=== PATIENT | female | born 1950 | race Caucasian/White ===

== ENCOUNTER 2019-07-10 13:09 | Emergency (ER) | payer MEDICARE, OTHER ==
[2019-07-10 13:42] VITALS: RESP 18
--- NOTE | 2019-07-10 14:59 | ED ---
General Adult HPI <Alphonso Gordon - Last Filed: 07/10/19 16:46> - General Source: patient, RN notes reviewed Mode of arrival: ambulatory Limitations: no limitations <Shayan Sosa - Last Filed: 07/10/19 17:53> - General Chief complaint: Nausea/Vomiting/Diarrhea Stated complaint: Nausea, headache, fever Time Seen by Provider: 07/10/19 14:46 - History of Present Illness Initial comments: 68-year-old female with a past medical history of liver disease, sclerosing cholangitis, interstitial cystitis presents to the emergency department for a chief complaint of fever. Patient states that on Sunday she had 4 episodes of diarrhea. States that since then she has not had any diarrhea but has had [place] sea and chills. Denies any abdominal pain. States she has had intermittent headaches as well as a runny nose. Denies cough. States that her urine smells foul and looks darker than normal but denies any dysuria or urinary frequency. Denies any suprapubic pain or back pain.Patient has no other complaints at this time including shortness of breath, chest pain, abdominal pain, or visual changes. (Shayan Sosa) - Related Data Home Medications Medication Instructions Recorded Confirmed Acetaminophen Tab [Tylenol Tab] 325 mg PO Q6H PRN 07/10/19 07/10/19 Calcium Carbonate [Calcium] 600 mg PO DAILY 07/10/19 07/10/19 Cyanocobalamin (Vitamin B-12) 1,000 mcg PO DAILY 07/10/19 07/10/19 [Vitamin B-12] Fish Oil/Dha/Epa [Fish Oil 1,200 1 cap PO BID 07/10/19 07/10/19 mg Fish Oil] Flaxseed Oil 1,000 mg PO DAILY 07/10/19 07/10/19 Folic Acid 0.8 mg PO DAILY 07/10/19 07/10/19 Ondansetron HCl [Zofran] 8 mg PO TID PRN 07/10/19 07/10/19 Ursodiol [Actigall] 300 mg PO BID-W/MEALS 07/10/19 07/10/19 clonazePAM [KlonoPIN] 0.5 mg PO BID PRN 07/10/19 07/10/19 Allergies Allergy/AdvReac Type Severity Reaction Status Date / Time aspirin AdvReac Unknown Verified 07/10/19 15:39 hydromorphone [From Dilaudid] AdvReac Nausea & Verified 07/10/19 15:39 Vomiting morphine AdvReac Nausea & Verified 07/10/19 15:39 Vomiting Sulfa (Sulfonamide AdvReac Nausea & Verified 07/10/19 15:39 Antibiotics) Vomiting Review of Systems ROS Other: All systems not noted in ROS Statement are negative. <Alphonso Gordon - Last Filed: 07/10/19 16:46> ROS Other: All systems not noted in ROS Statement are negative. <Shayan Sosa - Last Filed: 07/10/19 17:53> ROS Statement: Those systems with pertinent positive or pertinent negative responses have been documented in the HPI. Past Medical History Past Medical History: Liver Disease Additional Past Medical History / Comment(s): sclerosing cholangitis, interstitial cystitis, History of Any Multi-Drug Resistant Organisms: C-DIFF Date of last positivie culture/infection: 2012 MDRO Source:: stool Past Surgical History: Back Surgery, Cholecystectomy, Hernia Repair Past Psychological History: No Psychological Hx Reported Smoking Status: Never smoker Past Alcohol Use History: None Reported Past Drug Use History: None Reported <Shayan Sosa P - Last Filed: 07/10/19 17:53> General Exam Limitations: no limitations General appearance: alert, in no apparent distress Head exam: Present: atraumatic, normocephalic, normal inspection Eye exam: Present: normal appearance, PERRL, EOMI. Absent: scleral icterus, conjunctival injection, periorbital swelling ENT exam: Present: normal exam, normal oropharynx, mucous membranes moist, TM's normal bilaterally, normal external ear exam Neck exam: Present: normal inspection, full ROM. Absent: tenderness, meningis mus, lymphadenopathy Respiratory exam: Present: normal lung sounds bilaterally. Absent: respiratory distress, wheezes, rales, rhonchi, stridor Cardiovascular Exam: Present: regular rate, normal rhythm, normal heart sounds. Absent: systolic murmur, diastolic murmur, rubs, gallop, clicks GI/Abdominal exam: Present: soft, normal bowel sounds. Absent: distended, tenderness, guarding, rebound, rigid Back exam: Absent: CVA tenderness (R), CVA tenderness (L) Neurological exam: Present: alert, oriented X3, CN II-XII intact, normal gait, other (GCS 15) Psychiatric exam: Present: normal affect, normal mood <Shayan Sosa - Last Filed: 07/10/19 17:53> Course <Alphonso Gordon - Last Filed: 07/10/19 16:46> Vital Signs 07/10/19 07/10/19 07/10/19 13:38 15:23 16:57 Temperature 98.1 F 101.3 F H Pulse Rate 95 98 89 Respiratory 18 18 18 Rate Blood Pressure 97/61 101/57 101/69 O2 Sat by Pulse 98 97 97 Oximetry 07/10/19 07/10/19 17:20 17:21 Temperature 101.3 F H 100 F H Pulse Rate 89 Respiratory 18 Rate Blood Pressure 101/69 O2 Sat by Pulse 97 Oximetry - Reevaluation(s) Reevaluation #1: 07/10/19 16:46 PA supervision: I personally evaluate this case the presentation is consistent with a viral syndrome. Patient will be discharged I do agree with the assessment and plan. (Alphonso Gordon) Medical Decision Making - Lab Data Result diagrams: 07/10/19 14:55 07/10/19 14:55 <Alphonso Gordon - Last Filed: 07/10/19 16:46> - Lab Data Result diagrams: 07/10/19 14:55 07/10/19 14:55 <Shayan Sosa - Last Filed: 07/10/19 17:53> - Medical Decision Making 68-year-old female with a past medical history of liver disease, interstitial cystitis presents for fever. Patient had 4 episodes of diarrhea on Sunday since then has had nausea and chills. No abdominal pain whatsoever. Runny nose as well. Vitals show a temperature of 101.3. CBC unremarkable. CMP shows mildly elevated liver enzymes which is chronic. Urine is negative for infection. Patient was given fluids as she does have 1+ ketones. Chest x-ray also negative. Patient also having headaches when fever is elevated. No nuchal rigidity or neck pain. No focal neurologic deficits. At this time patient likely has a viral syndrome causing her fever. I discussed this case with attending Dr. Gordon who agrees with this assessment and treatment plan. (Ian,Shayan P) - Lab Data Lab Results 07/10/19 07/10/19 07/10/19 Range/Units 14:55 14:55 14:55 WBC 8.6 (3.8-10.6) k/uL RBC 4.51 (3.80-5.40) m/uL Hgb 13.9 (11.4-16.0) gm/dL Hct 42.4 (34.0-46.0) % MCV 93.9 (80.0-100.0) fL MCH 30.7 (25.0-35.0) pg MCHC 32.7 (31.0-37.0) g/dL RDW 13.3 (11.5-15.5) % Plt Count 264 (150-450) k/uL Neutrophils % 84 % Lymphocytes % 8 % Monocytes % 6 % Eosinophils % 0 % Basophils % 1 % Neutrophils # 7.2 (1.3-7.7) k/uL Lymphocytes # 0.7 L (1.0-4.8) k/uL Monocytes # 0.5 (0-1.0) k/uL Eosinophils # 0.0 (0-0.7) k/uL Basophils # 0.1 (0-0.2) k/uL PT (9.0-12.0) sec INR (<1.2) APTT (22.0-30.0) sec Sodium 136 L (137-145) mmol/L Potassium 4.9 (3.5-5.1) mmol/L Chloride 101 (98-107) mmol/L Carbon Dioxide 21 L (22-30) mmol/L Anion Gap 14 mmol/L BUN 16 (7-17) mg/dL Creatinine 1.03 (0.52-1.04) mg/dL Est GFR (CKD-EPI)AfAm 64 (>60 ml/min/1.73 sqM) Est GFR (CKD-EPI)NonAf 56 (>60 ml/min/1.73 sqM) Glucose 118 H (74-99) mg/dL Plasma Lactic Acid Joe 1.2 (0.7-2.0) mmol/L Calcium 9.7 (8.4-10.2) mg/dL Total Bilirubin 1.2 (0.2-1.3) mg/dL AST 79 H (14-36) U/L ALT 47 (9-52) U/L Alkaline Phosphatase 183 H (38-126) U/L Total Protein 8.3 H (6.3-8.2) g/dL Albumin 4.5 (3.5-5.0) g/dL Urine Color Urine Appearance (Clear) Urine pH (5.0-8.0) Ur Specific [place] (1.001-1.035) Urine Protein (Negative) Urine Glucose (UA) (Negative) Urine Ketones (Negative) Urine Blood (Negative) Urine Nitrite (Negative) Urine Bilirubin (Negative) Urine Urobilinogen (<2.0) mg/dL Ur Leukocyte Esterase (Negative) Urine RBC (0-5) /hpf Urine WBC (0-5) /hpf Urine Mucus (None) /hpf Influenza Type A RNA (Not Detectd) Influenza Type B (PCR) (Not Detectd) 07/10/19 07/10/19 07/10/19 Range/Units 14:55 14:55 Unknown WBC (3.8-10.6) k/uL RBC (3.80-5.40) m/uL Hgb (11.4-16.0) gm/dL Hct (34.0-46.0) % MCV (80.0-100.0) fL MCH (25.0-35.0) pg MCHC (31.0-37.0) g/dL RDW (11.5-15.5) % Plt Count (150-450) k/uL Neutrophils % % Lymphocytes % % Monocytes % % Eosinophils % % Basophils % % Neutrophils # (1.3-7.7) k/uL Lymphocytes # (1.0-4.8) k/uL Monocytes # (0-1.0) k/uL Eosinophils # (0-0.7) k/uL Basophils # (0-0.2) k/uL PT 9.5 (9.0-12.0) sec INR 0.9 (<1.2) APTT 23.6 (22.0-30.0) sec Sodium (137-145) mmol/L Potassium (3.5-5.1) mmol/L Chloride (98-107) mmol/L Carbon Dioxide (22-30) mmol/L Anion Gap mmol/L BUN (7-17) mg/dL Creatinine (0.52-1.04) mg/dL Est GFR (CKD-EPI)AfAm (>60 ml/min/1.73 sqM) Est GFR (CKD-EPI)NonAf (>60 ml/min/1.73 sqM) Glucose (74-99) mg/dL Plasma Lactic Acid Joe (0.7-2.0) mmol/L Calcium (8.4-10.2) mg/dL Total Bilirubin (0.2-1.3) mg/dL AST (14-36) U/L ALT (9-52) U/L Alkaline Phosphatase (38-126) U/L Total Protein (6.3-8.2) g/dL Albumin (3.5-5.0) g/dL Urine Color Yellow Urine Appearance Clear (Clear) Urine pH 6.0 (5.0-8.0) Ur Specific [place] 1.024 (1.001-1.035) Urine Protein Trace H (Negative) Urine Glucose (UA) Negative (Negative) Urine Ketones 1+ H (Negative) Urine Blood Trace H (Negative) Urine Nitrite Negative (Negative) Urine Bilirubin Negative (Negative) Urine Urobilinogen 2.0 (<2.0) mg/dL Ur Leukocyte Esterase Negative (Negative) Urine RBC 3 (0-5) /hpf Urine WBC 1 (0-5) /hpf Urine Mucus Rare H (None) /hpf Influenza Type A RNA Not Detected (Not Detectd) Influenza Type B (PCR) Not Detected (Not Detectd) Disposition <Alphonso Gordon - Last Filed: 07/10/19 16:46> Is patient prescribed a controlled substance at d/c from ED?: No Time of Disposition: 17:53 <Shayan Sosa - Last Filed: 07/10/19 17:53> Clinical Impression: Viral syndrome Disposition: HOME SELF-CARE Condition: Good Instructions (If sedation given, give patient instructions): Fever in Adults (ED) Additional Instructions: Please take Motrin and Tylenol for pain. Please follow-up with primary care in 1-2 days. Return to the emergency department if you have any worsening symptoms. Referrals: Alphonso Mercedes MD [Primary Care Provider] - 1-2 days
[2019-07-10] MEDS ORDERED: ACETAMINOPHEN TAB 500 MG TAB PO STA (15:24)
[2019-07-10 15:32] LABS: Basophils # (A) 0.1 k/uL (0-0.2); Basophils % (A) 1 %; Eosinophils % (A) 0 %; HCT 42.4 % (34.0-46.0); HGB 13.9 gm/dL (11.4-16.0); Lymphocytes # (A) 0.7 k/uL (1.0-4.8); Lymphocytes % (A) 8 %; MCH 30.7 pg (25.0-35.0); MCHC 32.7 g/dL (31.0-37.0); MCV 93.9 fL (80.0-100.0); Mean Platelet Volume 7.6; Monocytes # (A) 0.5 k/uL (0-1.0); Monocytes % (A) 6 %; Neutrophils # (A) 7.2 k/uL (1.3-7.7); Neutrophils % (A) 84 %; Platelet Count 264 k/uL (150-450); RBC 4.51 m/uL (3.80-5.40); RDW 13.3 % (11.5-15.5); WBC 8.6 k/uL (3.8-10.6)
[2019-07-10 15:37] LABS: Albumin 4.5 g/dL (3.5-5.0); Calcium 9.7 mg/dL (8.4-10.2); Total Bilirubin 1.2 mg/dL (0.2-1.3); Total Protein 8.3 g/dL (6.3-8.2)
[2019-07-10] MEDS: SODIUM CHLORIDE 0.9% 500 ML 500 ML IV SCH ×2 (15:46→16:00)
[2019-07-10 15:47] LABS: Appearance,Urine Clear (Clear); Bilirubin,Urine Negative (Negative); Blood,Urine Trace (Negative); Color,Urine Yellow; Glucose,Urine (UA) Negative (Negative); Ketones,Urine 1+ (Negative); Leukocyte Esterase,Urine Negative (Negative); Mucus,Urine Rare /hpf; Nitrite,Urine Negative (Negative); Potassium 4.9 mmol/L (3.5-5.1); Protein,Urine Trace (Negative); RBC,Urine 3 /hpf (0-5); Specific Gravity,Urine 1.024 (1.001-1.035); WBC,Urine 1 /hpf (0-5)
[2019-07-10 15:49] LABS: INR 0.9 (<1.2); Partial Thromboplastin Time 23.6 sec (22.0-30.0); Prothrombin Time 9.5 sec (9.0-12.0)
--- NOTE | 2019-07-10 16:21 | XR ---
EXAMINATION TYPE: XR chest 2V DATE OF EXAM: 07/10/2019 COMPARISON: NONE HISTORY: Fever, nausea and headache TECHNIQUE: Frontal and lateral views of the chest are obtained. FINDINGS: There is no focal air space opacity, pleural effusion, or pneumothorax seen. The cardiac silhouette size is within normal limits. Surgical clips are present in the right upper quadrant. Ther e are overlying cardiac leads. Patient is rotated. The osseous structures are intact. IMPRESSION: No acute cardiopulmonary process.
[2019-07-10 16:58] VITALS: BP 101/69; PULSE 89
[2019-07-10 17:21] VITALS: TEMP 100
== END 2019-07-10 18:04 | disposition home or self-care (01) ==
LOC: EC 13:09
DX: B34.9 Viral infection, unspecified (principal); R74.8 Abnormal levels of other serum enzymes; R19.7 Diarrhea, unspecified; R11.0 Nausea; Z79.899 Other long term (current) drug therapy; Z88.5 Allergy status to narcotic agent; Z88.6 Allergy status to analgesic agent; Z88.2 Allergy status to sulfonamides; Z90.49 Acquired absence of other specified parts of digestive tract; Z87.448 Personal history of other diseases of urinary system; Z87.19 Personal history of other diseases of the digestive system
CPT/HCPCS: 36415; 71046; 80053; 81001; 83605; 85025; 85610; 85730; 87086; 87502; 93005; 96360; 99284

== ENCOUNTER 2021-03-17 12:46 | Emergency (ER) | payer MEDICARE, OTHER ==
[2021-03-17 12:55] VITALS: TEMP 97.7
[2021-03-17] MEDS ORDERED: SODIUM CHLORIDE 0.9% 1,000 ML IV STA (13:20)
--- NOTE | 2021-03-17 13:45 | ED ---
General Adult HPI - General Chief complaint: Abdominal Pain Stated complaint: colitis, abd pain Time Seen by Provider: 03/17/21 13:19 Source: patient Mode of arrival: ambulatory Limitations: no limitations - History of Present Illness Initial comments: Dennis is a 70-year-old female with a history of ulcerative colitis which causes her to suffer from persistent nausea and intermittent vomiting. Patient states that earlier this week she saw her primary care physician to discuss starting a antidepressant due to the effects of her chronic illness on her mental health. Patient states yesterday she took a single dose of Celexa which caused her to develop profound nausea and vomiting. Patient states she hasn't been able to tolerate any oral intake for over 24 hours. She came to the ER today because she is feeling weak and dehydrated. Denies any abdominal pain. Chest pain or shortness of breath. - Related Data Home Medications Medication Instructions Recorded Confirmed Calcium Carbonate [Calcium] 600 mg PO DAILY 07/10/19 03/17/21 Cyanocobalamin (Vitamin B-12) 1,000 mcg PO DAILY 07/10/19 03/17/21 [Vitamin B-12] Fish Oil/Dha/Epa [Fish Oil 1,200 1 cap PO DAILY 07/10/19 03/17/21 mg Fish Oil] Folic Acid 0.8 mg PO DAILY 07/10/19 03/17/21 clonazePAM [KlonoPIN] 0.5 mg PO BID 07/10/19 03/17/21 ursodioL [Actigall] 600 mg PO BID-W/MEALS 07/10/19 03/17/21 Cholecalciferol [Vitamin D3 (25 25 mcg PO DAILY 03/17/21 03/17/21 Mcg = 1000 Iu)] Citalopram Hydrobromide [CeleXA] 10 mg PO DAILY 03/17/21 03/17/21 Dicyclomine [Bentyl] 10 mg PO TID PRN 03/17/21 03/17/21 Famotidine [Pepcid] 20 mg PO Q12H PRN 03/17/21 03/17/21 Ondansetron [Zofran] 4 mg PO Q12HR PRN 03/17/21 03/17/21 Allergies Allergy/AdvReac Type Severity Reaction Status Date / Time aspirin AdvReac Unknown Verified 03/17/21 14:41 hydromorphone [From Dilaudid] AdvReac Nausea & Verified 03/17/21 14:41 Vomiting morphine AdvReac Nausea & Verified 03/17/21 14:41 Vomiting Sulfa (Sulfonamide AdvReac Nausea & Verified 03/17/21 14:41 Antibiotics) Vomiting Review of Systems ROS Statement: Those systems with pertinent positive or pertinent negative responses have been documented in the HPI. ROS Other: All systems not noted in ROS Statement are negative. Past Medical History Past Medical History: Liver Disease Additional Past Medical History / Comment(s): sclerosing cholangitis, interstitial cystitis, ulcerative collitis History of Any Multi-Drug Resistant Organisms: C-DIFF Date of last positivie culture/infection: 2012 MDRO Source:: stool Past Surgical History: Back Surgery, Cholecystectomy, Hernia Repair Past Psychological History: No Psychological Hx Reported Smoking Status: Never smoker Past Alcohol Use History: None Reported Past Drug Use History: None Reported General Exam - General Exam Comments Initial Comments: Physical Exam GENERAL: Thin elderly female, appears dehydrated HENT: Normocephalic, Atraumatic. EYES: PERRL, EOMI PULMONARY: Unlabored respirations. CARDIOVASCULAR: RRR Warm and well perfused extremities ABDOMEN: Soft, non-tender Non-distended SKIN: No rashes or bruising : Deferred NEUROLOGIC: Alert and oriented Normal speech Normal gait MUSCULOSKELETAL: Moving all extremities with no apparent injury PSYCHIATRIC: No SI/HI Limitations: no limitations Course Vital Signs 03/17/21 03/17/21 03/17/21 12:51 14:06 15:27 Temperature 97.7 F Pulse Rate 64 68 Respiratory 18 16 Rate Blood Pressure 86/59 97/63 115/64 O2 Sat by Pulse 98 97 Oximetry EKG Findings - EKG Comments: EKG Findings:: EKG was obtained at 1341 rate is 65 rhythm is sinus there is a normal axis, normal intervals, IN 176, QRS 66 QTC 43 there are no acute ST elevations or depressions there is no evidence of ischemia or infarction Medical Decision Making - Medical Decision Making Patient was seen and evaluated, history was obtained from patient Labs and IV fluids were ordered Labs resulted with no significant abnormalities, mild elevation of liver enzymes is at baseline for patient Patient was treated with a dose of Zofran received a liter of IV fluids. Patient reported feeling much better she has prescriptions Zofran at home and is comfortable with plan for discharge home, discontinuation of her antidepressants and follow up with primary care - Lab Data Result diagrams: 03/17/21 13:52 03/17/21 13:52 Lab Results 03/17/21 03/17/21 03/17/21 Range/Units 13:52 13:52 13:52 WBC 7.7 (3.8-10.6) k/uL RBC 4.15 (3.80-5.40) m/uL Hgb 12.7 (11.4-16.0) gm/dL Hct 38.6 (34.0-46.0) % MCV 92.9 (80.0-100.0) fL MCH 30.6 (25.0-35.0) pg MCHC 33.0 (31.0-37.0) g/dL RDW 13.1 (11.5-15.5) % Plt Count 308 (150-450) k/uL MPV 7.9 Neutrophils % 67 % Lymphocytes % 26 % Monocytes % 5 % Eosinophils % 1 % Basophils % 1 % Neutrophils # 5.2 (1.3-7.7) k/uL Lymphocytes # 2.0 (1.0-4.8) k/uL Monocytes # 0.4 (0-1.0) k/uL Eosinophils # 0.1 (0-0.7) k/uL Basophils # 0.1 (0-0.2) k/uL Sodium 135 L (137-145) mmol/L Potassium 4.7 (3.5-5.1) mmol/L Chloride 100 (98-107) mmol/L Carbon Dioxide 29 (22-30) mmol/L Anion Gap 6 mmol/L BUN 13 (7-17) mg/dL Creatinine 1.21 H (0.52-1.04) mg/dL Est GFR (CKD-EPI)AfAm 52 (>60 ml/min/1.73 sqM) Est GFR (CKD-EPI)NonAf 45 (>60 ml/min/1.73 sqM) Glucose 93 (74-99) mg/dL Plasma Lactic Acid Joe (0.7-2.0) mmol/L Calcium 9.9 (8.4-10.2) mg/dL Magnesium 1.9 (1.6-2.3) mg/dL Total Bilirubin 0.3 (0.2-1.3) mg/dL AST 49 H (14-36) U/L ALT 28 (4-34) U/L Alkaline Phosphatase 156 H (38-126) U/L Troponin I (0.000-0.034) ng/mL Total Protein 7.0 (6.3-8.2) g/dL Albumin 4.0 (3.5-5.0) g/dL Amylase 57 (30-110) U/L Lipase 205 (23-300) U/L Urine Color Light Yellow Urine Appearance Clear (Clear) Urine pH 7.5 (5.0-8.0) Ur Specific [place] 1.007 (1.001-1.035) Urine Protein Negative (Negative) Urine Glucose (UA) Negative (Negative) Urine Ketones Negative (Negative) Urine Blood Negative (Negative) Urine Nitrite Negative (Negative) Urine Bilirubin Negative (Negative) Urine Urobilinogen <2.0 (<2.0) mg/dL Ur Leukocyte Esterase Negative (Negative) 03/17/21 03/17/21 Range/Units 13:52 13:52 WBC (3.8-10.6) k/uL RBC (3.80-5.40) m/uL Hgb (11.4-16.0) gm/dL Hct (34.0-46.0) % MCV (80.0-100.0) fL MCH (25.0-35.0) pg MCHC (31.0-37.0) g/dL RDW (11.5-15.5) % Plt Count (150-450) k/uL MPV Neutrophils % % Lymphocytes % % Monocytes % % Eosinophils % % Basophils % % Neutrophils # (1.3-7.7) k/uL Lymphocytes # (1.0-4.8) k/uL Monocytes # (0-1.0) k/uL Eosinophils # (0-0.7) k/uL Basophils # (0-0.2) k/uL Sodium (137-145) mmol/L Potassium (3.5-5.1) mmol/L Chloride (98-107) mmol/L Carbon Dioxide (22-30) mmol/L Anion Gap mmol/L BUN (7-17) mg/dL Creatinine (0.52-1.04) mg/dL Est GFR (CKD-EPI)AfAm (>60 ml/min/1.73 sqM) Est GFR (CKD-EPI)NonAf (>60 ml/min/1.73 sqM) Glucose (74-99) mg/dL Plasma Lactic Acid Joe 1.0 (0.7-2.0) mmol/L Calcium (8.4-10.2) mg/dL Magnesium (1.6-2.3) mg/dL Total Bilirubin (0.2-1.3) mg/dL AST (14-36) U/L ALT (4-34) U/L Alkaline Phosphatase (38-126) U/L Troponin I <0.012 (0.000-0.034) ng/mL Total Protein (6.3-8.2) g/dL Albumin (3.5-5.0) g/dL Amylase (30-110) U/L Lipase (23-300) U/L Urine Color Urine Appearance (Clear) Urine pH (5.0-8.0) Ur Specific [place] (1.001-1.035) Urine Protein (Negative) Urine Glucose (UA) (Negative) Urine Ketones (Negative) Urine Blood (Negative) Urine Nitrite (Negative) Urine Bilirubin (Negative) Urine Urobilinogen (<2.0) mg/dL Ur Leukocyte Esterase (Negative) Disposition Clinical Impression: Nausea and vomiting, Adverse reaction to antidepressant drug Disposition: HOME SELF-CARE Condition: Stable Additional Instructions: Follow up with Dr Apoorva GRACE to discuss medication to manage your daily symptoms from UC Is patient prescribed a controlled substance at d/c from ED?: No Referrals: Alphonso Mercedes MD [Primary Care Provider] - 1-2 days
[2021-03-17 14:06] LABS: Basophils # (A) 0.1 k/uL (0-0.2); Basophils % (A) 1 %; Eosinophils # (A) 0.1 k/uL (0-0.7); Eosinophils % (A) 1 %; HCT 38.6 % (34.0-46.0); HGB 12.7 gm/dL (11.4-16.0); Lymphocytes % (A) 26 %; MCH 30.6 pg (25.0-35.0); MCV 92.9 fL (80.0-100.0); Mean Platelet Volume 7.9; Monocytes # (A) 0.4 k/uL (0-1.0); Monocytes % (A) 5 %; Neutrophils # (A) 5.2 k/uL (1.3-7.7); Neutrophils % (A) 67 %; Platelet Count 308 k/uL (150-450); RBC 4.15 m/uL (3.80-5.40); RDW 13.1 % (11.5-15.5); WBC 7.7 k/uL (3.8-10.6)
[2021-03-17 14:15] LABS: Appearance,Urine Clear (Clear); Bilirubin,Urine Negative (Negative); Blood,Urine Negative (Negative); Color,Urine Light Yellow; Glucose,Urine (UA) Negative (Negative); Ketones,Urine Negative (Negative); Leukocyte Esterase,Urine Negative (Negative); Nitrite,Urine Negative (Negative); PH, Urine 7.5 (5.0-8.0); Protein,Urine Negative (Negative); Specific Gravity,Urine 1.007 (1.001-1.035); Urobilinogen,Urine <2.0 mg/dL (<2.0)
[2021-03-17 14:19] LABS: Calcium 9.9 mg/dL (8.4-10.2); Magnesium 1.9 mg/dL (1.6-2.3); Potassium 4.7 mmol/L (3.5-5.1); Total Bilirubin 0.3 mg/dL (0.2-1.3)
[2021-03-17] MEDS ORDERED: ONDANSETRON 4 MG/2 ML VIAL IVP STA (14:49)
[2021-03-17 15:28] VITALS: BP 115/64; PULSE 68; RESP 16
== END 2021-03-17 15:28 | disposition home or self-care (01) ==
LOC: EC 12:46
DX: T43.291A Poisoning by other antidepressants, accidental (unintentional), initial encounter (principal); Z90.49 Acquired absence of other specified parts of digestive tract
CPT/HCPCS: 36415; 93005; 80053; 82150; 83605; 83690; 83735; 84484; 85025; 81003; 99285; 96374; J2405

== ENCOUNTER 2023-02-08 16:13 | Emergency (ER) | payer MEDICARE, OTHER ==
[2023-02-08 16:21] VITALS: TEMP 98.6
[2023-02-08 16:53] LABS: Basophils % (A) 0 %; Eosinophils # (A) 0.1 k/uL (0-0.7); Eosinophils % (A) 1 %; HCT 35.7 % (34.0-46.0); HGB 11.8 gm/dL (11.4-16.0); Lymphocytes # (A) 2.6 k/uL (1.0-4.8); Lymphocytes % (A) 30 %; MCH 31.9 pg (25.0-35.0); MCHC 33.1 g/dL (31.0-37.0); MCV 96.2 fL (80.0-100.0); Mean Platelet Volume 8.6; Monocytes # (A) 0.4 k/uL (0-1.0); Monocytes % (A) 5 %; Neutrophils # (A) 5.3 k/uL (1.3-7.7); Neutrophils % (A) 62 %; Platelet Count 326 k/uL (150-450); RBC 3.71 m/uL (3.80-5.40); RDW 13.3 % (11.5-15.5); WBC 8.6 k/uL (3.8-10.6)
[2023-02-08 17:10] LABS: Albumin 4.1 g/dL (3.5-5.0); Calcium 8.7 mg/dL (8.4-10.2); Potassium 4.7 mmol/L (3.5-5.1); Total Bilirubin 0.8 mg/dL (0.2-1.3); Total Protein 7.8 g/dL (6.3-8.2)
[2023-02-08 17:19] LABS: Appearance,Urine Clear (Clear); Bilirubin,Urine Negative (Negative); Blood,Urine Negative (Negative); Color,Urine Light Yellow; Glucose,Urine (UA) Negative (Negative); Ketones,Urine Negative (Negative); Leukocyte Esterase,Urine Negative (Negative); Nitrite,Urine Negative (Negative); Protein,Urine Negative (Negative); Specific Gravity,Urine 1.004 (1.001-1.035); Urobilinogen,Urine <2.0 mg/dL (<2.0)
--- NOTE | 2023-02-08 20:01 | ED ---
Abdominal Pain HPI - General Chief Complaint: Abdominal Pain Stated Complaint: Abdominal Pain Time Seen by Provider: 02/08/23 18:32 Source: patient, RN notes reviewed, old records reviewed Mode of arrival: ambulatory Limitations: no limitations - History of Present Illness Initial Comments: This is a 72-year-old female bass department for evaluation today. Patient presents evaluation for abdominal pain left-sided left mid flank and suprapubic abdominal pain. Patient states she does have history of liver disease gross and cholangitis, patient presents today for evaluation of new onset abdominal pain never prior pain like this before history has had history of colonoscopy within normal. Patient states this concerned regarding her friend's the pain is episodic and is left-sided mild nausea no vomiting no other complaints no fevers. No change in stool no blood in the stool no diarrhea MD Complaint: abdominal pain -: hour(s) Location: diffuse, LLQ, L flank Radiation: none Migration to: no migration Severity: moderate Severity scale (1-10): 4 Quality: cramping Consistency: intermittent Improves With: nothing Worsens With: nothing Associated Symptoms: nausea - Related Data Home Medications Medication Instructions Recorded Confirmed Cyanocobalamin (Vitamin B-12) 1,000 mcg PO DAILY 07/10/19 02/08/23 [Vitamin B-12] Folic Acid 0.8 mg PO DAILY 07/10/19 02/08/23 clonazePAM [KlonoPIN] 0.5 mg PO BID 07/10/19 02/08/23 ursodioL [Actigall] 600 mg PO BID 07/10/19 02/08/23 Cholecalciferol [Vitamin D3 (25 25 mcg PO DAILY 02/08/23 02/08/23 Mcg = 1000 Iu)] Allergies Allergy/AdvReac Type Severity Reaction Status Date / Time aspirin AdvReac Unknown Verified 02/08/23 18:58 hydromorphone [From Dilaudid] AdvReac Nausea & Verified 02/08/23 18:58 Vomiting morphine AdvReac Nausea & Verified 02/08/23 18:58 Vomiting Sulfa (Sulfonamide AdvReac Nausea & Verified 02/08/23 18:58 Antibiotics) Vomiting Review of Systems ROS Statement: Those systems with pertinent positive or pertinent negative responses have been documented in the HPI. ROS Other: All systems not noted in ROS Statement are negative. Past Medical History Past Medical History: Liver Disease Additional Past Medical History / Comment(s): sclerosing cholangitis, interstitial cystitis, ulcerative collitis History of Any Multi-Drug Resistant Organisms: C-DIFF Date of last positivie culture/infection: 2021 MDRO Source:: stool Past Surgical History: Back Surgery, Cholecystectomy, Hernia Repair Past Psychological History: No Psychological Hx Reported Smoking Status: Never smoker Past Alcohol Use History: None Reported Past Drug Use History: None Reported General Exam Limitations: no limitations General appearance: alert, in no apparent distress Head exam: Present: atraumatic, normocephalic, normal inspection Eye exam: Present: normal appearance, PERRL, EOMI. Absent: scleral icterus, conjunctival injection, periorbital swelling ENT exam: Present: normal exam, mucous membranes moist Neck exam: Present: normal inspection. Absent: tenderness, meningismus, lymphadenopathy Respiratory exam: Present: normal lung sounds bilaterally. Absent: respiratory distress, wheezes, rales, rhonchi, stridor Cardiovascular Exam: Present: regular rate, normal rhythm, normal heart sounds. Absent: systolic murmur, diastolic murmur, rubs, gallop, clicks GI/Abdominal exam: Present: soft, normal bowel sounds. Absent: distended, tenderness, guarding, rebound, rigid Extremities exam: Present: normal inspection, full ROM, normal capillary refill. Absent: tenderness, pedal edema, joint swelling, calf tenderness Back exam: Present: normal inspection Neurological exam: Present: alert, oriented X3, CN II-XII intact Psychiatric exam: Present: normal affect, normal mood Skin exam: Present: warm, dry, intact, normal color. Absent: rash Course Vital Signs 02/08/23 02/08/23 02/08/23 16:19 20:09 21:50 Temperature 98.6 F Pulse Rate 77 74 86 Respiratory 20 18 20 Rate Blood Pressure 100/64 126/67 126/86 O2 Sat by Pulse 99 100 98 Oximetry - Reevaluation(s) Reevaluation #1: 02/09/23 00:34 Medical record is reviewed Reevaluation #2: 02/09/23 00:34 Patient has no change in symptoms here in the ER symptoms remain episodic Reevaluation #3: 02/09/23 00:34 Patient informed of results and questions answered Reevaluation #4: 02/09/23 00:34 Was pt. sent in by a medical professional or institution? @ -no Did you speak to anyone other than the patient for history? @ -no Did you review nursing and triage notes? @ -agree Were old charts reviewed? @ -no Differential Diagnosis? @ -prior EKG interpreted by me (3pts min.)? @ -no X-rays interpreted by me (1pt min.)? @ -no CT interpreted by me (1pt min.)? @ -no U/S interpreted by me (1pt. min.)? @ -no What testing was considered but not performed? (CT, X-rays, U/S, labs)? Why? @ -no What meds were considered but not given? Why? @ -no Did you discuss the management of the patient with other professionals? @ -no Did you reconcile home meds? @ -no Was smoking cessation discussed for >3mins.? @ -no Was critical care preformed (if so, how long)? @ -no Were there social determinants of health that impacted care today? How? (Homelessness, low income, unemployed, alcoholism, drug addiction, transportation, low edu. Level, literacy, decrease access to med. care, halfway, rehab)? @ -no Was there de-escalation of care discussed even if they declined? (Discuss DNR or withdrawal of care, Hospice)? @ -no What co-morbidities impacted this encounter? (DM, HTN, Smoking, COPD, CAD, Cancer, CVA, Hep., AIDS, mental health diagnosis, sleep apnea, morbid obesity)? @ -no Was patient admitted / discharged? @ -dc Undiagnosed new problem with uncertain prognosis? @ -no Drug Therapy requiring intensive monitoring for toxicity (Heparin, Nitro, Insulin, Cardizem)? @ -no Were any procedures done? @ -no Diagnosis/symptom? @ -abodminal pain Acute, or Chronic, or Acute on Chronic? @ -no Uncomplicated (without systemic symptoms) or Complicated (systemic symptoms)? @ -no Side effects of treatment? @ -no Exacerbation, Progression, or Severe Exacerbation] @ -no Poses a threat to life or bodily function? @ -no Reevaluation #5: 02/09/23 00:34 Differential Abdominal Pain Women: Appendicitis, Cholecystitis, diverticulosis, ischemic bowel, pancreatitis, hepatitis, UTI, gastroenteritis, AAA, incarcerated hernia, bowel obstruction, constipation, inflammatory bowel, hepatitis, peptic ulcer disease, splenic infarction, perforated viscus, vulvitis, ovarian torsion, PID, kidney stone, placenta abruption, this is not meant to be an all-inclusive list Medical Decision Making - Medical Decision Making 72 male with nonspecific abdominal pain CT labwork is normal patient can be discharged home - Lab Data Result diagrams: 02/08/23 16:35 02/08/23 16:35 Lab Results 02/08/23 02/08/23 02/08/23 Range/Units 16:35 16:35 16:57 WBC 8.6 (3.8-10.6) k/uL RBC 3.71 L (3.80-5.40) m/uL Hgb 11.8 (11.4-16.0) gm/dL Hct 35.7 (34.0-46.0) % MCV 96.2 (80.0-100.0) fL MCH 31.9 (25.0-35.0) pg MCHC 33.1 (31.0-37.0) g/dL RDW 13.3 (11.5-15.5) % Plt Count 326 (150-450) k/uL MPV 8.6 Neutrophils % 62 % Lymphocytes % 30 % Monocytes % 5 % Eosinophils % 1 % Basophils % 0 % Neutrophils # 5.3 (1.3-7.7) k/uL Lymphocytes # 2.6 (1.0-4.8) k/uL Monocytes # 0.4 (0-1.0) k/uL Eosinophils # 0.1 (0-0.7) k/uL Basophils # 0.0 (0-0.2) k/uL Sodium 136 L (137-145) mmol/L Potassium 4.7 (3.5-5.1) mmol/L Chloride 102 (98-107) mmol/L Carbon Dioxide 26 (22-30) mmol/L Anion Gap 8 mmol/L BUN 17 (7-17) mg/dL Creatinine 1.18 H (0.52-1.04) mg/dL Est GFR (CKD-EPI)AfAm 53 (>60 ml/min/1.73 sqM) Est GFR (CKD-EPI)NonAf 46 (>60 ml/min/1.73 sqM) Glucose 94 (74-99) mg/dL Calcium 8.7 (8.4-10.2) mg/dL Total Bilirubin 0.8 (0.2-1.3) mg/dL AST 79 H (14-36) U/L ALT 58 H (4-34) U/L Alkaline Phosphatase 217 H (38-126) U/L Total Protein 7.8 (6.3-8.2) g/dL Albumin 4.1 (3.5-5.0) g/dL Amylase 67 (30-110) U/L Lipase 214 (23-300) U/L Urine Color Light Yellow Urine Appearance Clear (Clear) Urine pH 6.0 (5.0-8.0) Ur Specific [place] 1.004 (1.001-1.035) Urine Protein Negative (Negative) Urine Glucose (UA) Negative (Negative) Urine Ketones Negative (Negative) Urine Blood Negative (Negative) Urine Nitrite Negative (Negative) Urine Bilirubin Negative (Negative) Urine Urobilinogen <2.0 (<2.0) mg/dL Ur Leukocyte Esterase Negative (Negative) - Radiology Data Radiology results: report reviewed (CT head and pelvis negative for acute disease), image reviewed Disposition Clinical Impression: Abdominal pain Disposition: HOME SELF-CARE Condition: Good Instructions (If sedation given, give patient instructions): Abdominal Pain (ED) Is patient prescribed a controlled substance at d/c from ED?: No Referrals: Alphonso Mercedes MD [Primary Care Provider] - 1-2 days Time of Disposition: 21:10
--- NOTE | 2023-02-08 20:35 | CT ---
EXAMINATION TYPE: CT abdomen pelvis wo con DATE OF EXAM: 02/08/2023 HISTORY: abdominal pain not further specified CT DLP: 359.8 mGycm. Automated Exposure Control for Dose Reduction was Utilized. TECHNIQUE: CT scan of the abdomen and pelvis is performed without oral or IV contrast. COMPARISON: MRI/MRCP 2010. FINDINGS: Within the limitations of a non-contrast study, the following observations are made. LUNG BASES: No significant abnormality is appreciated. LIVER/GB: Cholecystectomy clips are present. PANCREAS: No significant abnormality is seen. SPLEEN: No significant abnormality is seen. ADRENALS: No significant abnormality is seen. KIDNEYS: No renal calculi or hydronephrosis. Mildly distended bladder. BOWEL: Normal appearing appendix from cecum. No suspicious small or large bowel dilatation. GENITAL ORGANS: Scattered tiny bilateral pelvic phleboliths. LYMPH NODES: No greater than 1cm abdominal or pelvic lymph nodes are appreciated. OSSEOUS STRUCTURES: Prominent Schmorl node involving superior T12 and L2 endplates. Moderate axial nava int space loss in both hips. OTHER: Minimal calcified plaque of the aorta extends into branch vessels. IMPRESSION: No renal stones or hydronephrosis is seen bilaterally. No bowel obstruction. No acute fin dings identified on noncontrast CT.
[2023-02-08 21:51] VITALS: BP 126/86; PULSE 86; RESP 20
== END 2023-02-08 21:51 | disposition home or self-care (01) ==
LOC: EC 16:13
DX: R10.32 Left lower quadrant pain (principal); Z88.5 Allergy status to narcotic agent; Z88.6 Allergy status to analgesic agent; Z88.2 Allergy status to sulfonamides; Z88.1 Allergy status to other antibiotic agents
CPT/HCPCS: 36415; 74176; 80053; 81003; 82150; 83690; 85025; 93005; 99284

== ENCOUNTER 2024-02-28 11:40 | Observation (INO) | payer MEDICARE, OTHER ==
[2024-02-28 13:22] LABS: Basophils % (A) 1 %; Eosinophils % (A) 0 %; HCT 36.6 % (34.0-46.0); HGB 11.8 gm/dL (11.4-16.0); Lymphocytes # (A) 1.4 k/uL (1.0-4.8); Lymphocytes % (A) 18 %; MCH 31.1 pg (25.0-35.0); MCHC 32.3 g/dL (31.0-37.0); MCV 96.1 fL (80.0-100.0); Mean Platelet Volume 8.5; Monocytes # (A) 0.5 k/uL (0-1.0); Monocytes % (A) 6 %; Neutrophils # (A) 5.8 k/uL (1.3-7.7); Neutrophils % (A) 73 %; Platelet Count 307 k/uL (150-450); RBC 3.81 m/uL (3.80-5.40); RDW 14.2 % (11.5-15.5)
[2024-02-28 13:33] LABS: INR 0.9 (<1.2); Partial Thromboplastin Time 23.3 sec (22.0-30.0); Prothrombin Time 9.9 sec (10.0-12.5)
[2024-02-28 13:37] LABS: ALT 31 U/L (4-34); AST 42 U/L (14-36); African American GFR (CKD) 69 (>60 ml/min/1.73 sqM); Albumin 3.9 g/dL (3.5-5.0); Alkaline Phosphatase 279 U/L (38-126); Anion Gap 6 mmol/L; Blood Urea Nitrogen 17 mg/dL (7-17); Calcium 8.9 mg/dL (8.4-10.2); Carbon Dioxide 28 mmol/L (22-30); Chloride 102 mmol/L (98-107); Glucose 98 mg/dL (74-99); Lipase 213 U/L (23-300); Magnesium 1.8 mg/dL (1.6-2.3); Non-African American GFR(CKD) 60 (>60 ml/min/1.73 sqM); Sodium 136 mmol/L (137-145); Total Bilirubin 0.3 mg/dL (0.2-1.3); Total Protein 7.4 g/dL (6.3-8.2)
[2024-02-28 13:43] LABS: NT-Pro-B-Type Natriuretic Pept 344 pg/mL
--- NOTE | 2024-02-28 15:53 | ED ---
Chest Pain HPI - General Chief Complaint: Chest Pain Stated Complaint: chest pain Time Seen by Provider: 02/28/24 12:11 Source: patient Mode of arrival: ambulatory Limitations: no limitations - History of Present Illness Initial Comments: 73-year-old female with past medical history of sclerosing cholangitis, ulcerative colitis who presents to the emergency department with chest pain. Patient states has been going on for the past [address] Tadeo in the office 1.5 weeks ago. He did order a stress test. The pain got more si gnificant and therefore she was seen at [facility] on Sunday. Laboratory studies were negative and the patient was discharged home. Patient is having recurring pain today. Has associated shortness of breath. Pain is not reproducible upon palpation or movement. She does not have any history of coronary disease however does have history of atherosclerosis in her aorta. She admits to a nonproductive cough. No fevers. No nausea or vomiting. No other alleviating, precipitating or modifying factors - Related Data Home Medications Medication Instructions Recorded Confirmed Cyanocobalamin (Vitamin B-12) 1,000 mcg PO DAILY 07/10/19 02/28/24 [Vitamin B-12] Folic Acid 0.8 mg PO DAILY 07/10/19 02/28/24 clonazePAM [KlonoPIN] 0.75 mg PO HS 07/10/19 02/28/24 ursodioL [Actigall] 600 mg PO BID 07/10/19 02/28/24 Cholecalciferol [Vitamin D3 (25 25 mcg PO DAILY 02/08/23 02/28/24 Mcg = 1000 Iu)] Ammonium Lactate Lotion 1 applic TOPICAL BID PRN 02/28/24 02/28/24 [Lac-Hydrin 12% Lotion] Famotidine [Pepcid] 20 mg PO BID PRN 02/28/24 02/28/24 Allergies Allergy/AdvReac Type Severity Reaction Status Date / Time aspirin AdvReac Unknown Verified 02/28/24 14:18 codeine AdvReac Nausea & Verified 02/28/24 14:18 Vomiting hydromorphone [From Dilaudid] AdvReac Nausea & Verified 02/28/24 14:18 Vomiting Iodinated Contrast Media AdvReac Nausea & Verified 02/28/24 14:18 Vomiting morphine AdvReac Nausea & Verified 02/28/24 14:18 Vomiting Sulfa (Sulfonamide AdvReac Nausea & Verified 02/28/24 14:18 Antibiotics) Vomiting Review of Systems ROS Statement: Those systems with pertinent positive or pertinent negative responses have been documented in the HPI. ROS Other: All systems not noted in ROS Statement are negative. Past Medical History Past Medical History: Liver Disease Additional Past Medical History / Comment(s): sclerosing cholangitis, interstitial cystitis, ulcerative collitis History of Any Multi-Drug Resistant Organisms: C-DIFF Date of last positivie culture/infection: 2021 MDRO Source:: stool Past Surgical History: Back Surgery, Cholecystectomy, Hernia Repair Past Psychological History: No Psychological Hx Reported Smoking Status: Never smoker Past Alcohol Use History: None Reported Past Drug Use History: None Reported General Exam Limitations: no limitations General appearance: alert, in no apparent distress Head exam: Present: atraumatic, normocephalic, normal inspection Eye exam: Present: normal appearance, PERRL, EOMI. Absent: scleral icterus, conjunctival injection, periorbital swelling ENT exam: Present: normal exam, mucous membranes moist Neck exam: Present: normal inspection. Absent: tenderness, meningismus, lymphadenopathy Respiratory exam: Present: normal lung sounds bilaterally. Absent: respiratory distress, wheezes, rales, rhonchi, stridor Cardiovascular Exam: Present: regular rate, normal rhythm, normal heart sounds. Absent: systolic murmur, diastolic murmur, rubs, gallop, clicks GI/Abdominal exam: Present: soft, normal bowel sounds. Absent: distended, tenderness, guarding, rebound, rigid Extremities exam: Present: normal inspection, full ROM, normal capillary refill. Absent: tenderness, pedal edema, joint swelling, calf tenderness Back exam: Present: normal inspection Neurological exam: Present: alert, oriented X3, CN II-XII intact Psychiatric exam: Present: normal affect, normal mood Skin exam: Present: warm, dry, intact, normal color. Absent: rash Course Vital Signs 02/28/24 02/28/24 02/28/24 11:46 14:04 16:00 Temperature 98.1 F Pulse Rate 86 75 74 Respiratory 16 16 20 Rate Blood Pressure 94/60 103/59 122/63 O2 Sat by Pulse 99 100 100 Oximetry 02/28/24 02/28/24 02/28/24 18:50 20:15 21:34 Temperature Pulse Rate 71 75 69 Respiratory 16 18 18 Rate Blood Pressure 118/59 119/77 107/63 O2 Sat by Pulse 100 78 L 95 Oximetry Chest Pain MDM - MDM Was pt. sent in by a medical professional or institution (INDRA Bardales, CORPORATE ACCOUNTANT, urgent care, hospital, or correction...) When possible be specific @ -No Did you speak to anyone other than the patient for history (EMS, parent, family, police, friend...)? What history was obtained from this source @ -No Did you review nursing and triage notes (agree or disagree)? Why? @ -I reviewed and agree with nursing and triage notes Were old charts reviewed (outside hosp., previous admission, EMS record, old EKG, old radiological studies, urgent care reports/EKG's, correction records)? Report findings @ -I reviewed patient's MyChart from [facility] Differential Diagnosis (chest pain, altered mental status, abdominal pain women, abdominal pain men, vaginal bleeding, weakness, fever, dyspnea, syncope, headache, dizziness, GI bleed, back pain, seizure, CVA, palpatations, mental health, musculoskeletal)? @ -Differential Chest Pain: Stable Angina, Unstable Angina, STEMI, NSTEMI Aortic Dissection, Pneumothorax, Musculoskeletal, Esophageal Spasm GERD, Cholecystitis, Pancreatitis, Zoster, this is not meant to be an all-inclusive list. EKG interpreted by me (3pts min.). @ -Yes and demonstrates sinus rhythm with a rate of 76. MT interval 161. QRS 72. QTc of 382. No acute ST segment elevations or depressions X-rays interpreted by me (1pt min.). @ -None done CT interpreted by me (1pt min.). @ -None done U/S interpreted by me (1pt. min.). @ -None done What testing was considered but not performed or refused? (CT, X-rays, U/S, labs)? Why? @ -X-ray however patient just had 1 for the same complaint What meds were considered but not given or refused? Why? @ -None Did you discuss the management of the patient with other professionals (professionals i.e. INDRA Bardales, CORPORATE ACCOUNTANT, lab, RT, psych nurse, outreach and education social worker, software test and validation engineer, teacher, business development officer, supportive employment case manager)? Give summary @ -Spoke with Dr. Mccoy who will admit the patient Was smoking cessation discussed for >3mins.? @ -No Was critical care preformed (if so, how long)? @ -No Were there social determinants of health that impacted care today? How? (Homelessness, low income, unemployed, alcoholism, drug addiction, transportation, low edu. Level, literacy, decrease access to med. care, [facility], rehab)? @ -No Was there de-escalation of care discussed even if they declined (Discuss DNR or withdrawal of care, Hospice)? DNR status @ -No What co-morbidities impacted this encounter? (DM, HTN, Smoking, COPD, CAD, Cancer, CVA, ARF, Chemo, Hep., AIDS, mental health diagnosis, sleep apnea, morbid obesity)? @ -Aortic atherosclerosis Was patient admitted / discharged? Hospital course, mention meds given and route, prescriptions, significant lab abnormalities, going to OR and other pertinent info. @ -Upon arrival patient was seen and evaluated in room 26. Thorough history and physical exam was performed. IV access was established laboratory studies are conducted. I did review the patient's laboratory studies from [facility]. At this time the patient has continuous chest pain with worsening of her symptoms. I will admit the patient for cardiology consultation. Spoke with Dr. Mccoy who agreed to admit the patient Undiagnosed new problem with uncertain prognosis? @ -Yes Drug Therapy requiring intensive monitoring for toxicity (Heparin, Nitro, Insulin, Cardizem)? @ -No Were any procedures done? @ -No Diagnosis/symptom? @ -Acute chest pain, possible ACS Acute, or Chronic, or Acute on Chronic? @ -Acute Uncomplicated (without systemic symptoms) or Complicated (systemic symptoms)? @ -Complicated Side effects of treatment? @ -No Exacerbation, Progression, or Severe Exacerbation? @ -No Poses a threat to life or bodily function? How? (Chest pain, [place], [place], pneumonia, PE, COPD, DKA, ARF, appy, cholecystitis, CVA, Diverticulitis, Homicidal, Suicidal, threat to staff... and all critical care pts) @ -No Disposition Clinical Impression: Chest pain Disposition: ADMITTED IP TO THIS HOSP Is patient prescribed a controlled substance at d/c from ED?: No Time of Disposition: 15:53 Decision to Admit Reason: Admit from EC Decision Date: 02/28/24 Decision Time: 15:53
[2024-02-28] MEDS ORDERED: ACETAMINOPHEN TAB 325 MG TAB PO PRN (15:54)
[2024-02-28] MEDS ORDERED: NALOXONE 0.4 MG/ML 1 ML VIAL IV PRN (15:54)
[2024-02-28] MEDS ORDERED: FAMOTIDINE 20 MG TAB PO PRN (18:51)
[2024-02-28] MEDS: ursodioL 300 MG CAP PO SCH (20:09)
[2024-02-28] MEDS: clonazePAM 0.5 MG TAB PO SCH (20:10)
--- NOTE | 2024-02-28 21:28 | P.HPIM ---
History of Present Illness H&P Date: 02/28/24 Chief Complaint: Chest pain This is a 73-year-old patient who follows Dr. Alphonso Mercedes. Chronic stable medical conditions include long-standing sclerosing cholangitis, interstitial cystitis, nonspecific colitis [she is also been told she has possible ulcerative colitis/Crohn's disease/IBS not sure about actual diagnosis. C. difficile in the past.. Patient been having chest wall pain. Sometimes on the right lateral chest wall. Sometimes on the left side. Sometimes at the midline across. Often will last for about 30 minutes then go away. About a year ago patient had a stress test by Dr. Charles. Patient now follows with Dr. Tadeo. 2 days ago she was seen at [facility]. And she was discharged from there. Patient decided to come in. No obvious exacerbating relieving factors. No shortness of breath. Review of systems: GEN.: None EYES: None HEENT: None NECK: None RESPIRATORY: None CARDIOVASCULAR: As above GASTROINTESTINAL: None GENITOURINARY: None MUSCULOSKELETAL: None LYMPHATICS: None HEMATOLOGICAL: None PSYCHIATRY: None NEUROLOGICAL: None Past medical history to include: Sclerosing cholangitis, interstitial cystitis, nonspecific colitis [questionable ulcerative colitis/Crohn's disease/IBS], C. diff Social history: Lives with her ex-. Does not smoke or drink alcohol. Physical examination: VITAL SIGNS: 98.1, 86, 16, 119/77, 100% room air GENERAL: BMI 19.0, laying in bed awake slightly anxious EYES: Pupils equal. Conjunctiva normal. HEENT: External appearance of nose and ears normal, oral cavity grossly normal. NECK: JVD not raised; masses not palpable. HEART: First and second heart sounds are normal; no edema. LUNGS: Respiratory rate normal; decreased breath sounds. ABDOMEN: Soft, nontender, liver spleen not palpable, no masses palpable. PSYCH: Alert and oriented x3; mood and affect anxiousl. MUSCULOSKELETAL:No Clubbing/cyanosis;muscles-grossly intact. Loss of subcu history should muscle mass. Evidence of OA INVESTIGATIONS, reviewed in the clinical context: White count 8 hemoglobin 11.8 platelets 307 sodium 136 potassium 4 BUN 17 creatinine 0.95 Troponin I x 3 less than 0.012 proBNP 344 EKG tracing personally reviewed by me-normal sinus rhythm -Assessment and plan: -Anterior chest wall pain. Noncardiac sounding. Location changes every episode. Not related to exertion. Had a negative stress test a year ago. Follows with Dr. Tadeo locally. Troponins negative. EKG unremarkable. -Chronic sclerosing cholangitis Actigall -Chronic anxiety Klonopin 0.5 mg twice a day -GERD Pepcid when necessary -Chronic B12 deficiency Vitamin B12 thousand microgram a day Care was discussed with the patient. Cardiology consulted. Past Medical History Past Medical History: Liver Disease Additional Past Medical History / Comment(s): sclerosing cholangitis, interstitial cystitis, ulcerative collitis History of Any Multi-Drug Resistant Organisms: C-DIFF Date of last positivie culture/infection: 2021 MDRO Source:: stool Past Surgical History: Back Surgery, Cholecystectomy, Hernia Repair Past Psychological History: No Psychological Hx Reported Smoking Status: Never smoker Past Alcohol Use History: None Reported Past Drug Use History: None Reported Medications and Allergies Home Medications Medication Instructions Recorded Confirmed Type Cyanocobalamin (Vitamin B-12) 1,000 mcg PO DAILY 07/10/19 02/28/24 History [Vitamin B-12] Folic Acid 0.8 mg PO DAILY 07/10/19 02/28/24 History clonazePAM [KlonoPIN] 0.75 mg PO HS 07/10/19 02/28/24 History ursodioL [Actigall] 600 mg PO BID 07/10/19 02/28/24 History Cholecalciferol [Vitamin D3 (25 25 mcg PO DAILY 02/08/23 02/28/24 History Mcg = 1000 Iu)] Ammonium Lactate Lotion 1 applic TOPICAL BID PRN 02/28/24 02/28/24 History [Lac-Hydrin 12% Lotion] Famotidine [Pepcid] 20 mg PO BID PRN 02/28/24 02/28/24 History Allergies Allergy/AdvReac Type Severity Reaction Status Date / Time aspirin AdvReac Unknown Verified 02/28/24 14:18 codeine AdvReac Nausea & Verified 02/28/24 14:18 Vomiting hydromorphone [From Dilaudid] AdvReac Nausea & Verified 02/28/24 14:18 Vomiting Iodinated Contrast Media AdvReac Nausea & Verified 02/28/24 14:18 Vomiting morphine AdvReac Nausea & Verified 02/28/24 14:18 Vomiting Sulfa (Sulfonamide AdvReac Nausea & Verified 02/28/24 14:18 Antibiotics) Vomiting Physical Exam Vitals: Vital Signs Temp Pulse Resp BP Pulse Ox 02/28/24 20:15 75 18 119/77 78 L 02/28/24 18:50 71 16 118/59 100 02/28/24 16:00 74 20 122/63 100 02/28/24 14:04 75 16 103/59 100 02/28/24 11:46 98.1 F 86 16 94/60 99 Intake and Output 02/28/24 02/28/24 02/28/24 06:59 14:59 22:59 Other: Weight 48.534 kg Results CBC & Chem 7: 02/28/24 13:05 02/28/24 13:05 Labs: Abnormal Lab Results - Last 24 Hours (Table) 02/28/24 02/28/24 Range/Units 13:05 13:05 PT 9.9 L (10.0-12.5) sec Sodium 136 L (137-145) mmol/L AST 42 H (14-36) U/L Alkaline Phosphatase 279 H (38-126) U/L
--- NOTE | 2024-02-28 21:48 | XR ---
EXAMINATION TYPE: XR chest 2V DATE OF EXAM: 02/28/2024 9:41 PM CLINICAL INDICATION:Female, 73 years old with history of Chest pain; [facility] COMPARISON: Chest radiographs from 12/05/2021. TECHNIQUE: XR chest 2V Frontal and lateral views of the chest. FINDINGS: Lungs/Pleura: There is no evidence of pleural effusion, focal consolidation, or pneumothorax. Pulmonary vascularity: Unremarkable. Heart/mediastinum: Cardiomediastinal silhouette is unremarkable. Musculoskeletal: No acute osseous pathology. IMPRESSION: No acute cardiopulmonary disease/process.
[2024-02-28] MEDS: ENOXAPARIN 40 MG/0.4 ML SYRINGE SQ SCH (21:57)
[2024-02-28 22:48] VITALS: RESP 16
[2024-02-29] MEDS: FOLIC ACID 1 MG TAB PO SCH (08:45)
[2024-02-29] MEDS: CYANOCOBALAMIN 500 MCG TAB PO SCH (08:45)
--- NOTE | 2024-02-29 10:30 | P.CRDCN ---
History of Present Illness History of present illness: HISTORY OF PRESENT ILLNESS: This is a 73-year-old female with a past medical history significant for ulcerative colitis, sclerosing cholangitis, and family history of CAD. Patient follows in the office with Dr. Tadeo. We have been asked to see the patient in consultation for chest pain. Patient examined at the bedside. Patient states on Sunday she began having chest pain. She states the pain radiated across both sides of her chest. She states that she took Pepcid and the pain went away. She reports that last week she went to the [place] [facility] for chest pain. She states that she had a an EKG, x-ray, and blood work drawn. She was discharged and told to follow-up with her physician. She states that she called the inspector tubes office yesterday and was directed to come to the emergency room. Patient currently denies any chest pain or pressure. She reports a family history of CAD. She states that her dad has had a CABG. She states her brother had an TX in his 50s and her other brother had an TX in his 70s and this year due to an TX. DIAGNOSTICS: - EKG reveals sinus mechanism with no signs of acute ischemia. - Chest xray negative for acute process. - Laboratory data: WBC 8.0. Hemoglobin 11.8. Platelet count 307. D-dimer 0.55. Sodium 136. Potassium 4.0. BUN 17. Creatinine 0.95. Magnesium 1.8. Troponin negative x 3. - Current home cardiac medications include none. - Most recent echocardiogram obtained in 2014 revealing ejection fraction of 60% - Patient underwent stress test in July 2017 which was negative for ischemia REVIEW OF SYSTEMS: At the time of my exam: CONSTITUTIONAL: Denies fever or chills. HEENT: Denies blurred vision, vision changes, or eye pain. Denies hemoptysis CARDIOVASCULAR: Denies chest pain. Denies orthopnea. Denies PND. Denies palpitations RESPIRATORY: Denies shortness of breath. GASTROINTESTINAL: Denies abdominal pain. Denies nausea or vomiting. HEMATOLOGIC: Denies bleeding disorders. GENITOURINARY: Denies any blood in urine. SKIN: Denies pruitis. Denies rash. PHYSICAL EXAM: VITAL SIGNS: Reviewed. GENERAL: Well-developed in no acute distress. HEENT: Head is normocephalic. Pupils are equal, round. Sclerae anicteric. Mucous membranes of the mouth are moist. Neck supple. No JVD or thyromegaly LUNGS: Respirations even and unlabored. Lungs essentially clear to auscultation bilaterally. HEART: Regular rate and rhythm. S1 and S2 heard. ABDOMEN: Soft. Nondistended. Nontender. EXTREMITIES: Normal range of motion. No clubbing or cyanosis. Peripheral pulses intact. No lower extremity edema NEUROLOGIC: Awake and alert. Oriented x 3. ASSESSMENT: Chest pain History of ulcerative colitis History of sclerosing cholangitis Family history of CAD PLAN: An acute coronary but has been ruled out Obtain 2D echo to assess cardiac structure and function Patient to undergo stress echocardiogram today If negative, she may be discharged home from a cardiac standpoint Nurse practitioner note has been reviewed by physician. Signing provider agrees with the documented findings, assessment, and plan of care documented by WOUND CARE PHYSICIAN as a scribe. Past Medical History Past Medical History: Liver Disease Additional Past Medical History / Comment(s): sclerosing cholangitis, interstitial cystitis, ulcerative collitis History of Any Multi-Drug Resistant Organisms: C-DIFF Date of last positivie culture/infection: 2021 MDRO Source:: stool Past Surgical History: Back Surgery, Cholecystectomy, Hernia Repair Past Psychological History: No Psychological Hx Reported Smoking Status: Never smoker Past Alcohol Use History: None Reported Past Drug Use History: None Reported Medications and Allergies Home Medications Medication Instructions Recorded Confirmed Type Cyanocobalamin (Vitamin B-12) 1,000 mcg PO DAILY 07/10/19 02/28/24 History [Vitamin B-12] Folic Acid 0.8 mg PO DAILY 07/10/19 02/28/24 History clonazePAM [KlonoPIN] 0.75 mg PO HS 07/10/19 02/28/24 History ursodioL [Actigall] 600 mg PO BID 07/10/19 02/28/24 History Cholecalciferol [Vitamin D3 (25 25 mcg PO DAILY 02/08/23 02/28/24 History Mcg = 1000 Iu)] Ammonium Lactate Lotion 1 applic TOPICAL BID PRN 02/28/24 02/28/24 History [Lac-Hydrin 12% Lotion] Famotidine [Pepcid] 20 mg PO BID PRN 02/28/24 02/28/24 History Allergies Allergy/AdvReac Type Severity Reaction Status Date / Time aspirin AdvReac Unknown Verified 02/28/24 14:18 codeine AdvReac Nausea & Verified 02/28/24 14:18 Vomiting hydromorphone [From Dilaudid] AdvReac Nausea & Verified 02/28/24 14:18 Vomiting Iodinated Contrast Media AdvReac Nausea & Verified 02/28/24 14:18 Vomiting morphine AdvReac Nausea & Verified 02/28/24 14:18 Vomiting Sulfa (Sulfonamide AdvReac Nausea & Verified 02/28/24 14:18 Antibiotics) Vomiting Physical Exam Vitals: Vital Signs Temp Pulse Pulse Resp BP BP BP 02/29/24 07:00 98.3 F 67 16 91/57 02/29/24 02:00 98.3 F 75 16 99/53 02/29/24 01:42 68 16 02/28/24 22:15 97.8 F 68 16 102/60 02/28/24 21:34 69 18 107/63 02/28/24 20:15 75 18 119/77 02/28/24 18:50 71 16 118/59 02/28/24 16:00 74 20 122/63 02/28/24 14:04 75 16 103/59 02/28/24 11:46 98.1 F 86 16 94/60 Pulse Ox 02/29/24 07:00 100 02/29/24 02:00 98 02/29/24 01:42 02/28/24 22:15 100 02/28/24 21:34 95 02/28/24 20:15 78 L 02/28/24 18:50 100 02/28/24 16:00 100 02/28/24 14:04 100 02/28/24 11:46 99 Intake and Output 02/28/24 02/29/24 02/29/24 22:59 06:59 14:59 Other: Voiding Method Toilet # Voids 0 Weight 48.534 kg Results 02/28/24 13:05 02/28/24 13:05 Cardiac Enzymes 02/28/24 02/28/24 02/28/24 Range/Units 13:05 13:05 16:18 AST 42 H (14-36) U/L Troponin I <0.012 <0.012 (0.000-0.034) ng/mL 02/28/24 Range/Units 20:04 AST (14-36) U/L Troponin I <0.012 (0.000-0.034) ng/mL Coagulation 02/28/24 Range/Units 13:05 PT 9.9 L (10.0-12.5) sec APTT 23.3 (22.0-30.0) sec CBC 02/28/24 Range/Units 13:05 WBC 8.0 (3.8-10.6) k/uL RBC 3.81 (3.80-5.40) m/uL Hgb 11.8 (11.4-16.0) gm/dL Hct 36.6 (34.0-46.0) % Plt Count 307 (150-450) k/uL Comprehensive Metabolic Panel 02/28/24 Range/Units 13:05 Sodium 136 L (137-145) mmol/L Potassium 4.0 (3.5-5.1) mmol/L Chloride 102 (98-107) mmol/L Carbon Dioxide 28 (22-30) mmol/L BUN 17 (7-17) mg/dL Creatinine 0.95 (0.52-1.04) mg/dL Glucose 98 (74-99) mg/dL Calcium 8.9 (8.4-10.2) mg/dL AST 42 H (14-36) U/L ALT 31 (4-34) U/L Alkaline Phosphatase 279 H (38-126) U/L Total Protein 7.4 (6.3-8.2) g/dL Albumin 3.9 (3.5-5.0) g/dL Current Medications Generic Name Dose Route Start Last Admin Trade Name Freq PRN Reason Stop Dose Admin Acetaminophen 650 mg 02/28/24 15:54 Acetaminophen Tab 325 Mg Tab PO Q6HR PRN Mild Pain or Fever > 100.5 Clonazepam 0.75 mg 02/28/24 21:00 02/28/24 20:10 Clonazepam 0.5 Mg Tab PO 0.75 mg HS JAMES Administration Cyanocobalamin 1,000 mcg 02/29/24 09:00 Cyanocobalamin 500 Mcg Tab PO DAILY JAMES Enoxaparin Sodium 40 mg 02/28/24 21:30 02/28/24 21:57 Enoxaparin 40 Mg/0.4 Ml Syringe SQ 40 mg DAILY JAMES Administration Famotidine 20 mg 02/28/24 18:51 Famotidine 20 Mg Tab PO BID PRN Heartburn Folic Acid 1 mg 02/29/24 09:00 Folic Acid 1 Mg Tab PO DAILY JAMES Naloxone HCl 0.2 mg 02/28/24 15:54 Naloxone 0.4 Mg/Ml 1 Ml Vial IV Q2M PRN Opioid Reversal Ursodiol 600 mg 02/28/24 21:00 02/28/24 20:09 Ursodiol 300 Mg Cap PO 600 mg BID JAMES Administration Intake and Output 02/28/24 02/29/24 02/29/24 22:59 06:59 14:59 Other: Voiding Method Toilet # Voids 0 Weight 48.534 kg 02/28/24 13:05 02/28/24 13:05
[2024-02-29 10:44] LABS: Basophils # (A) 0.05 X 10*3/uL (0.00-0.10); Basophils % (A) 0.7 %; Eosinophils # (A) 0.05 X 10*3/uL (0.04-0.35); Eosinophils % (A) 0.7 %; HCT 37.7 % (37.2-46.3); HGB 11.8 g/dL (12.0-15.0); Lymphocytes # (A) 2.44 X 10*3/uL (0.90-5.00); Lymphocytes % (A) 36.4 %; MCH 30.6 pg (27.0-32.0); MCHC 31.3 g/dL (32.0-37.0); MCV 97.7 FL (80.0-97.0); Monocytes # (A) 0.75 X 10*3/uL (0.20-1.00); Monocytes % (A) 11.2 %; NRBC Per 100 WBC 0 X 10*3/uL (0.00-0.01); Neutrophils # (A) 3.39 X 10*3/uL (1.80-7.70); Neutrophils % (A) 50.7 %; Platelet Count 305 X 10*3/uL (140-440); RBC 3.86 X 10*6/uL (4.10-5.20); RDW 14.8 % (11.5-14.5)
[2024-02-29 11:09] LABS: BUN/Creat Ratio 13.44 Ratio (12.00-20.00); Blood Urea Nitrogen 12.1 mg/dL (9.0-27.0); Calcium 8.8 mg/dL (8.7-10.3); Carbon Dioxide 23.6 mmol/L (21.6-31.8); Chloride 103 mmol/L (96-109); Glucose 90 mg/dL (70-110); Potassium 4.3 mmol/L (3.5-5.5); Sodium 137 mmol/L (135-145)
--- NOTE | 2024-02-29 11:42 | CA ---
Transthoracic Echo Report Name: Dennis Lawrence Age: 73 Gender: F : 1950 Exam Date: 02/29/2024 08:40 Exam Location: [place] [facility] Ht (in): 63 Wt (lb): 107 Ordering Physician: Karie Marks DO Attending/Referring Phys: [employer] Service Team Member Kylei Daugherty RDCS Procedure CPT: Indications: Chest Pain Cardiac Hx: Technical Quality: Good Contrast 1: Total Dose (mL): Contrast 2: Total Dose (mL): MEASUREMENTS (Male / Female) Normal Values 2D ECHO LV Diastolic Diameter PLAX 3.5 cm 4.2 - 5.9 / 3.9 - 5.3 cm LV Systolic Diameter PLAX 2.1 cm IVS Diastolic Thickness 0.9 cm 0.6 - 1.0 / 0.6 - 0.9 cm LVPW Diastolic Thickness 0.7 cm 0.6 - 1.0 / 0.6 - 0.9 cm LV Relative Wall Thickness 0.5 RV Internal Dim ED PLAX 2.3 cm LA Systolic Diameter LX 2.6 cm 3.0 - 4.0 / 2.7 - 3.8 cm LV Diastolic Volume MOD BP 41.2 cm??? 67 - 155 / 56 - 104 cm??? LV Systolic Volume MOD BP 12.5 cm??? 22 - 58 / 19 - 49 cm??? LV Ejection Fraction MOD BP 69.6 % >= 55 % LV Diastolic Volume MOD 4C 37.8 cm??? LV Systolic Volume MOD 4C 12.0 cm??? LV Ejection Fraction MOD 4C 68.2 % LV Diastolic Length 4C 6.1 cm LV Systolic Length 4C 4.7 cm LV Diastolic Volume MOD 2C 44.2 cm??? LV Systolic Volume MOD 2C 13.0 cm??? LV Ejection Fraction MOD 2C 70.5 % LV Diastolic Length 2C 6.2 cm LV Systolic Length 2C 4.7 cm M-MODE Aortic Root Diameter MM 2.5 cm LA Systolic Diameter MM 2.3 cm LA Ao Ratio MM 0.9 AV Cusp Separation MM 1.6 cm DOPPLER Mitral E Point Velocity 72.9 cm/s Mitral A Point Velocity 62.7 cm/s Mitral E to A Ratio 1.2 MV Deceleration Time 278.8 ms TR Peak Velocity 213.5 cm/s TR Peak Gradient 18.2 mmHg Right Ventricular Systolic Press 23.3 mmHg FINDINGS Left Ventricle Left ventricular ejection fraction is estimated at 60-60 %. Normal Left ventricular size, wall thickness, systolic function with no obvious regional wall motion abnormalities. Normal Left ventricular diastolic filling pattern. Right Ventricle Normal right ventricular size and function. Right ventricular systolic pressure within normal limits. Right Atrium Normal right atrial size. Left Atrium Normal left atrial size. Mitral Valve Structurally normal mitral valve. Trace mitral regurgitation. No mitral stenosis. Aortic Valve Trileaflet aortic valve. No aortic valve stenosis or regurgitation. Tricuspid Valve Structurally normal tricuspid valve. Trace tricuspid regurgitation. Pulmonic Valve Structurally normal pulmonic valve. Trace pulmonic regurgitation. No pulmonic stenosis. Pericardium No pericardial or pleural effusion. Aorta Normal size aortic root and proximal ascending aorta. CONCLUSIONS Normal LV systolic function Previewed by: Dr. Ean Strong MD (Electronically Signed) Final Date: 29 Feb 2024 11:41
[2024-02-29 15:52] VITALS: BP 95/60; PULSE 71; TEMP 97.8
--- NOTE | 2024-02-29 18:07 | CA ---
Stress Echo Report Dennis Lawrence Age: 73 Gender: F : 1950 Exam Date: 02/29/2024 12:23 Exam Location: [place] [facility] Ht (in): 63 Wt (lb): 107 Ordering Physician: Shandra Arenas Referring Physician: Dagoberto THAKKAR Grating Machine Operator: Deepali Recio RDCS Technologist Procedure CPT: Indication: CP ICD-9 Codes: Rhythm: Patient History: Cardiac Medications: SEE CHART Medications in past 24 hours: Contrast: N/A Stress Results Protocol: Jet Total dose(mL): NA Exercise Duration (min:sec): 6:[address] Depression (mm): Angina Score: Cardenas Score: METS: 7.1 Resting HR: 85 Resting BP: 119 / 51 Peak HR: 148 Peak BP: 152 / 63 Max Predicted HR: 146 101 % Max Predicted HR Target HR: 124 Double Product: 41429 Stress Summary: BP Response: Reason for Termination: Reached target heart rate or work-load Cardiac Symptoms: NO SYMPTOMS ECG Analysis Resting ECG: Stress ECG: Arrhythmia: Echo Analysis Resting Echo: Peak Echo Analysis: MEASUREMENTS (Male/Female) Normal Values CONCLUSIONS Good exercise tolerance Normal electrocardiogram and echocardiogram in response to exercise Dr. Ean Strong MD (Electronically Signed) Final Date: 29 Feb 2024 18:06
--- NOTE | 2024-03-01 11:03 | P.DS ---
Providers Date of admission: 02/28/24 15:55 Expected date of discharge: 02/29/24 Attending physician: Javad Mccoy Consults: 02/28/24 15:54 Consult Physician Urgent Consulting Provider: [facility] Consult Reason/Comments: acute chest pain, possible acs Do you want consulting provider notified?: Yes [facility] care [facility] Course: Chief Complaint: Chest pain This is a 73-year-old patient who follows Dr. Alphonso Mercedes. Chronic stable medical conditions include long-standing sclerosing cholangitis, interstitial cystitis, nonspecific colitis [she is also been told she has possible ulcerative colitis/Crohn's disease/IBS not sure about actual diagnosis. C. difficile in the past.. Patient been having chest wall pain. Sometimes on the right lateral chest wall. Sometimes on the left side. Sometimes at the midline across. Often will last for about 30 minutes then go away. About a year ago patient had a stress test by Dr. Charles. Patient now follows with Dr. Tadeo. 2 days ago she was seen at [facility]. And she was discharged from there. Patient decided to come in. No obvious exacerbating relieving factors. No shortness of breath. February 28: Comfortable. Stress echocardiogram came back negative. Cleared by cardiology for discharge. Follow-up with cardiology. Past medical history to include: Sclerosing cholangitis, interstitial cystitis, nonspecific colitis [questionable ulcerative colitis/Crohn's disease/IBS], C. diff Social history: Lives with her ex-. Does not smoke or drink alcohol. Physical examination: VITAL SIGNS: 97.8, 71, 16, 95 x 60, 100% room air GENERAL: Comfortable EYES: Pupils equal. Conjunctiva normal. HEENT: External appearance of nose and ears normal, oral cavity grossly normal. NECK: JVD not raised; masses not palpable. HEART: First and second heart sounds are normal; no edema. LUNGS: Respiratory rate normal; decreased breath sounds. ABDOMEN: Soft, nontender, liver spleen not palpable, no masses palpable. PSYCH: Alert and oriented x3; mood and affect anxiousl. MUSCULOSKELETAL:No Clubbing/cyanosis;muscles-grossly intact. Loss of subcu history should muscle mass. Evidence of OA INVESTIGATIONS, reviewed in the clinical context: Stress echocardiogram: Normal 2D echocardiogram: EF 60%. February 28: White count 6.7 hemoglobin 11.8 platelets 305 potassium 4.3 White count 8 hemoglobin 11.8 platelets 307 sodium 136 potassium 4 BUN 17 creatinine 0.95 Troponin I x 3 less than 0.012 proBNP 344 EKG tracing personally reviewed by me-normal sinus rhythm -Assessment and plan: -Anterior chest wall pain. Noncardiac sounding. Location changes every episode. Not related to exertion. Had a negative stress test a year ago.: Likely musculoskeletal Follows with Dr. Tadeo Troponins negative. EKG unremarkable. Stress echocardiogram-normal -Chronic sclerosing cholangitis Actigall -Chronic anxiety Klonopin 0.5 mg twice a day -GERD Pepcid when necessary -Chronic B12 deficiency Vitamin B12 thousand microgram a day Disposition: Home Past Medical History Past Medical History: Liver Disease Additional Past Medical History / Comment(s): sclerosing cholangitis, interstitial cystitis, ulcerative collitis History of Any Multi-Drug Resistant Organisms: C-DIFF Date of last positivie culture/infection: 2021 MDRO Source:: stool Past Surgical History: Back Surgery, Cholecystectomy, Hernia Repair Past Psychological History: No Psychological Hx Reported Smoking Status: Never smoker Past Alcohol Use History: None Reported Past Drug Use History: None Reported Plan - Discharge Summary Discharge Rx Participant: No New Discharge Prescriptions: No Action clonazePAM [KlonoPIN] 0.75 mg PO HS Cyanocobalamin (Vitamin B-12) [Vitamin B-12] 1,000 mcg PO DAILY Folic Acid 0.8 mg PO DAILY ursodioL [Actigall] 600 mg PO BID Cholecalciferol [Vitamin D3 (25 Mcg = 1000 Iu)] 25 mcg PO DAILY Famotidine [Pepcid] 20 mg PO BID PRN PRN Reason: Heartburn Ammonium Lactate Lotion [Lac-Hydrin 12% Lotion] 1 applic TOPICAL BID PRN PRN Reason: Dry Skin Discharge Medication List Cyanocobalamin (Vitamin B-12) [Vitamin B-12] 1,000 mcg PO DAILY 07/10/19 [Histo ry] Folic Acid 0.8 mg PO DAILY 07/10/19 [History] clonazePAM [KlonoPIN] 0.75 mg PO HS 07/10/19 [History] ursodioL [Actigall] 600 mg PO BID 07/10/19 [History] Cholecalciferol [Vitamin D3 (25 Mcg = 1000 Iu)] 25 mcg PO DAILY 02/08/23 [History] Ammonium Lactate Lotion [Lac-Hydrin 12% Lotion] 1 applic TOPICAL BID PRN 02/28/24 [History] Famotidine [Pepcid] 20 mg PO BID PRN 02/28/24 [History] Follow up Appointment(s)/Referral(s): Jose Tadeo DO [STAFF PHYSICIAN] - 1 Week Alphonso Mercedes MD [Primary Care Provider] - 1-2 days Patient Instructions/Handouts: Chest Pain (DC) Discharge Disposition: HOME SELF-CARE
== END 2024-02-29 19:01 | disposition home or self-care (01) ==
LOC: EC 11:40 → 6NMEDSUR 15:55
PROVIDERS: ADMIT Hospitalist; ATTEND Hospitalist
DX: R07.89 Other chest pain (principal); K51.90 Ulcerative colitis, unspecified, without complications; K83.09 Other cholangitis; F41.9 Anxiety disorder, unspecified; K21.9 Gastro-esophageal reflux disease without esophagitis; E53.8 Deficiency of other specified B group vitamins; Z79.899 Other long term (current) drug therapy; Z88.2 Allergy status to sulfonamides; Z88.5 Allergy status to narcotic agent; Z88.6 Allergy status to analgesic agent; Z82.49 Family history of ischemic heart disease and other diseases of the circulatory system
CPT/HCPCS: 96372 ×2; 99285; 36415; 93005; 93306; 93351; 85379; 83880; 80053; 80048; 83690; 83735; 84484; 85025 ×2; 85610; 85730; 71046; G0378 ×2; J1650 ×2

== ENCOUNTER 2024-05-29 08:15 | Day surgery (SDC) | payer MEDICARE, OTHER ==
[~2024-05-29 08:15] MED LIST: LACTATED RINGERS 1,000 ML BAG ONE; LIDOCAINE 1% INJ 10MG/ML (20 ML MDV) ONE; PROPOFOL 10 MG/ML 20 ML VIAL IV ONE
--- NOTE | 2024-06-20 07:15 | P.PCN ---
Date of Procedure: 05/29/24 Procedure(s) Performed: This is an addendum to the procedure that was performed on 05/29/2024. Procedure performed EGD with biopsy Colonoscopy with biopsy Procedure: Upper endoscopy was performed and the scope was advanced all the way into the duodenum. There was evidence of mild antral gastritis and biopsies were done from the antrum. Colonoscopy was performed and the scope was advanced all the way into the cecum. There were patchy areas of erythema noted in the cecum and the ascending colon and biopsies were done at every 10 cm intervals throughout the entire colon to rule out dysplasia.
== END 2024-05-29 08:21 | disposition home or self-care (01) ==
LOC: ORWHC2ENDO 08:15
PROVIDERS: ATTEND Internal Medicine Gastroenterology
DX: K29.50 Unspecified chronic gastritis without bleeding (principal); K51.90 Ulcerative colitis, unspecified, without complications; M19.90 Unspecified osteoarthritis, unspecified site; Z88.2 Allergy status to sulfonamides; Z88.5 Allergy status to narcotic agent; Z88.8 Allergy status to other drugs, medicaments and biological substances
CPT/HCPCS: 43239; 45380; 88305

== ENCOUNTER 2024-12-22 15:09 | Inpatient (IN) | payer MEDICARE, OTHER ==
--- NOTE | 2024-12-22 15:24 | ED ---
General Adult HPI - General Chief complaint: Abdominal Pain Stated complaint: abd pain Time Seen by Provider: 12/22/24 15:15 Source: patient, EMS, RN notes reviewed, old records reviewed Mode of arrival: EMS - History of Present Illness Initial comments: This is a 74-year-old female who presents to the emergency department with past medical history of ulcerative colitis. Patient states she was at [facility] today and she was having more pain and diarrhea and she was evaluated there and they told her that her white count was up and her liver enzymes were elevated so they want to send her here to see Dr. Sanchez who is on-call today. Patient continues to have abdominal cramping and diarrhea today she did take Imodium yesterday and it did help with the diarrhea yesterday but it continues today. Patient denies chest pain or difficulty breathing. Patient denies any fever chills or cough. - Related Data Home Medications Medication Instructions Recorded Confirmed Cyanocobalamin (Vitamin B-12) 1,000 mcg PO DAILY 07/10/19 02/28/24 [Vitamin B-12] Folic Acid 0.8 mg PO DAILY 07/10/19 02/28/24 clonazePAM [KlonoPIN] 0.75 mg PO HS 07/10/19 02/28/24 ursodioL [Actigall] 600 mg PO BID 07/10/19 02/28/24 Cholecalciferol [Vitamin D3 (25 25 mcg PO DAILY 02/08/23 02/28/24 Mcg = 1000 Iu)] Ammonium Lactate Lotion 1 applic TOPICAL BID PRN 02/28/24 02/28/24 [Lac-Hydrin 12% Lotion] Famotidine [Pepcid] 20 mg PO BID PRN 02/28/24 02/28/24 Allergies Allergy/AdvReac Type Severity Reaction Status Date / Time aspirin AdvReac Unknown Verified 12/22/24 15:18 codeine AdvReac Nausea & Verified 12/22/24 15:18 Vomiting hydromorphone [From Dilaudid] AdvReac Nausea & Verified 12/22/24 15:18 Vomiting Iodinated Contrast Media AdvReac Nausea & Verified 12/22/24 15:18 Vomiting morphine AdvReac Nausea & Verified 12/22/24 15:18 Vomiting Sulfa (Sulfonamide AdvReac Nausea & Verified 12/22/24 15:18 Antibiotics) Vomiting Review of Systems ROS Statement: Those systems with pertinent positive or pertinent negative responses have been documented in the HPI. ROS Other: All systems not noted in ROS Statement are negative. Past Medical History Past Medical History: Liver Disease Additional Past Medical History / Comment(s): sclerosing cholangitis, interstitial cystitis, ulcerative collitis History of Any Multi-Drug Resistant Organisms: C-DIFF Date of last positivie culture/infection: 2021 MDRO Source:: stool Past Surgical History: Back Surgery, Cholecystectomy, Hernia Repair Past Psychological History: No Psychological Hx Reported Smoking Status: Never smoker Past Alcohol Use History: None Reported Past Drug Use History: None Reported General Exam - General Exam Comments Initial Comments: GENERAL: Patient is well-developed and well-nourished. Patient is nontoxic and well- hydrated and is in mild distress. ENT: Neck is soft and supple. No significant lymphadenopathy is noted. Oropharynx is clear. Moist mucous membranes. Neck has full range of motion without eliciting any pain. EYES: The sclera were anicteric and conjunctiva were pink and moist. Extraocular movements were intact and pupils were equal round and reactive to light. Eyelids were unremarkable. PULMONARY: Unlabored respirations. Good breath sounds bilaterally. No audible rales rhonchi or wheezing was noted. CARDIOVASCULAR: There is a regular rate and rhythm without any murmurs gallops or rubs. ABDOMEN: Soft and nontender with normal bowel sounds. SKIN: Skin is clear with no lesions or rashes and otherwise unremarkable. NEUROLOGIC: Patient is alert and oriented x3. Cranial nerves II through XII are grossly intact. Motor and sensory are also intact. Normal speech, volume and content. Symmetrical smile. MUSCULOSKELETAL: Normal extremities with adequate strength and full range of motion. No lower extremity swelling or edema. No calf tenderness. LYMPHATICS: No significant lymphadenopathy is noted PSYCHIATRIC: Normal psychiatric evaluation. Course Vital Signs 12/22/24 15:11 Temperature 98.5 F Pulse Rate 78 Respiratory 20 Rate Blood Pressure 119/69 O2 Sat by Pulse 100 Oximetry Medical Decision Making - Medical Decision Making Was pt. sent in by a medical professional or institution (, PA, COMPRESSOR MECHANIC, urgent care, hospital, or long term...) When possible be specific @ -Patient was sent from [facility] Did you speak to anyone other than the patient for history (EMS, parent, family, police, friend...)? What history was obtained from this source @ -I spoke with the ER doctor at [facility] and he gave me all the history lab work and CAT scan results prior to the patient's arrival Did you review nursing and triage notes (agree or disagree)? Why? @ -I reviewed and agree with nursing and triage notes Were old charts reviewed (outside hosp., previous admission, EMS record, old EKG, old radiological studies, urgent care reports/EKG's, long term records)? Report findings @ -I reviewed patient's CAT scan and lab results from [facility] Differential Diagnosis? @ -Differential Abdominal Pain Men: Appendicitis, cholecystitis, diverticulosis, ischemic bowel, pancreatitis, hepatitis, UTI, gastroenteritis, AAA, incarcerated hernia, bowel obstruction, constipation, inflammatory bowel, hepatitis, peptic ulcer disease, splenic infarction, perforated viscus, testicular torsion, this is not meant to be an all-inclusive list EKG interpreted by me (3pts min.). @ -As above X-rays interpreted by me (1pt min.). @ -None done CT interpreted by me (1pt min.). @ -None done U/S interpreted by me (1pt. min.). @ -None done What testing was considered but not performed or refused? (CT, X-rays, U/S, labs)? Why? @ -None What meds were considered but not given or refused? Why? @ -None Did you discuss the management of the patient with other professionals (professionals i.e. , PA, COMPRESSOR MECHANIC, lab, RT, psych nurse, addiction social worker, home appraiser, teacher, commercial loan collection officer, rifle case repairer)? Give summary @ -Spoke with [facility] and they agreed to admit the patient and I wrote admitting orders Was smoking cessation discussed for >3mins.? @ -No Was critical care preformed (if so, how long)? @ -No Were there social determinants of health that impacted care today? How? (Homelessness, low income, unemployed, alcoholism, drug addiction, transportation, low edu. Level, literacy, decrease access to med. care, alf, rehab)? @ -No Was there de-escalation of care discussed even if they declined (Discuss DNR or withdrawal of care, Hospice)? DNR status @ -No What co-morbidities impacted this encounter? (DM, HTN, Smoking, COPD, CAD, Cancer, CVA, ARF, Chemo, Hep., AIDS, mental health diagnosis, sleep apnea, morbid obesity)? @ -None Was patient admitted / discharged? Hospital course, mention meds given and route, prescriptions, significant lab abnormalities, going to OR and other pertinent info. @ -Patient continues to have cramping [facility] Undiagnosed new problem with uncertain prognosis? @ -No Drug Therapy requiring intensive monitoring for toxicity (Heparin, Nitro, Insulin, Cardizem)? @ -No Were any procedures done? @ -No Diagnosis/symptom? @ -Ulcerative colitis Acute, or Chronic, or Acute on Chronic? @ -Acute Uncomplicated (without systemic symptoms) or Complicated (systemic symptoms)? @ -Complicated Side effects of treatment? @ -No Exacerbation, Progression, or Severe Exacerbation? @ -No Poses a threat to life or bodily function? How? (Chest pain, USA, DC, pneumonia, PE, COPD, DKA, ARF, appy, cholecystitis, CVA, Diverticulitis, Homicidal, Suicidal, threat to staff... and all critical care pts) @ -Yes this can lead to significant dehydration and electrolyte abnormalities Disposition Clinical Impression: Exacerbation of ulcerative colitis Disposition: ADMITTED IP TO THIS HOSP Referrals: None,Stated [Primary Care Provider] - 1-2 days Time of Disposition: 15:41
[2024-12-22] MEDS: SODIUM CHLORIDE 0.9% 1,000 ML IV ONE (16:19)
[2024-12-22] MEDS ORDERED: FAMOTIDINE 20 MG TAB PO PRN (19:01)
[2024-12-22] MEDS ORDERED: DICYCLOMINE 10 MG CAP PO PRN (19:01)
[2024-12-22] MEDS: clonazePAM 0.5 MG TAB PO SCH (21:15)
[2024-12-22] MEDS: ursodioL 300 MG CAP PO SCH (21:17)
[2024-12-23 10:22] LABS: Basophils % (A) 0 %; Eosinophils # (A) 0.1 k/uL (0-0.7); Eosinophils % (A) 1 %; HCT 36.8 % (34.0-46.0); HGB 11.1 gm/dL (11.4-16.0); Hypochromasia Slight; Lymphocytes # (A) 2.3 k/uL (1.0-4.8); Lymphocytes % (A) 23 %; MCH 30.2 pg (25.0-35.0); MCHC 30.1 g/dL (31.0-37.0); MCV 100.3 fL (80.0-100.0); Mean Platelet Volume 9.3; Monocytes # (A) 0.5 k/uL (0-1.0); Monocytes % (A) 5 %; Neutrophils % (A) 69 %; Platelet Count 383 k/uL (150-450); RBC 3.67 m/uL (3.80-5.40); RDW 13.5 % (11.5-15.5); WBC 10.1 k/uL (3.8-10.6)
[2024-12-23 10:46] LABS: ALT 89 U/L (4-34); AST 128 U/L (14-36); African American GFR (CKD) 78 (>60 ml/min/1.73 sqM); Albumin/Globulin Ratio 0.9; Alkaline Phosphatase 416 U/L (38-126); Anion Gap 10 mmol/L; Blood Urea Nitrogen 12 mg/dL (7-17); Calcium 8.5 mg/dL (8.4-10.2); Carbon Dioxide 25 mmol/L (22-30); Chloride 96 mmol/L (98-107); Globulin 3.3 g/dL; Glucose 97 mg/dL (74-99); Non-African American GFR(CKD) 68 (>60 ml/min/1.73 sqM); Potassium 4.1 mmol/L (3.5-5.1); Sodium 131 mmol/L (137-145); Total Protein 6.3 g/dL (6.3-8.2)
[2024-12-23 10:47] VITALS: TEMP 98.4
--- NOTE | 2024-12-23 10:52 | P.CONS ---
History of Present Illness - Reason for Consult Consult date: 12/23/24 Ulcerative colitis, diarrhea Requesting physician: Jd Parson - Chief Complaint Diarrhea - History of Present Illness This is a pleasant 74-year-old female who follows with gastroenterology for history of ulcerative colitis as well as primary sclerosing cholangitis who was recently seen in the office with Dr. Knapp for abdominal cramping and diarrhea. She was started on Bentyl about a week ago and states that it was not improving her symptoms. She states diarrhea started about 3 weeks ago where she was having 5-7 nonbloody loose stools. She was having some abdominal cramping. Patient had initially gone to [facility] for further evaluation sam arently had a CT of the abdomen pelvis however report is not available at this time. She also had lab work with some evidence of leukocytosis and elevated LFTs. She was transferred to this hospital for gastroenterology consult. Labs from [facility] WBC 14.9 hemoglobin 10.4 hematocrit 32 platelet count 459,000 total bilirubin 1.0 AST 120 ALT 86 alkaline phosphatase 475 lipase 50. She states she has been taking multiple medications at home including prednisone that she had at home 10 mg daily and had taken it for the last 5 days she was also on Bentyl as well as Zofran. She denies any recent antibiotics other than states that she did get some IV antibiotics at [facility] but none since then. She denies any nausea or vomiting. Denies any blood in her stool. States that she took an Imodium on Sunday and has not had any further diarrhea. States that she had 2 bowel movements yesterday but they were more soft and formed. Review of Systems REVIEW OF SYSTEMS: CARDIOPULMONARY: No chest pain or shortness of breath. Gastrointestinal: Abdominal pain. No nausea or vomiting. No hematemesis, coffee-ground emesis. No rectal bleeding, or melena. Nonbloody diarrhea. GENITOURINARY: No dysuria or hematuria. MUSCULOSKELETAL: Reports normal range of motion. SKIN: No rashes. No jaundice. ENDOCRINE: No chills, fevers. No excessive weight gain or loss. No polydipsia or polyuria. PSYCHIATRIC: Unremarkable. NEUROLOGY: No change in mental status. Denies dizziness, headache. ENT: Vision unremarkable. CONSTITUTIONAL: No recent weight loss. No fever, chills, night sweats. Past Medical History Past Medical History: Liver Disease Additional Past Medical History / Comment(s): sclerosing cholangitis, interstitial cystitis, ulcerative collitis History of Any Multi-Drug Resistant Organisms: C-DIFF Year Discovered:: 2021 MDRO Source:: stool Past Surgical History: Back Surgery, Cholecystectomy, Hernia Repair Past Psychological History: No Psychological Hx Reported Smoking Status: Never smoker Past Alcohol Use History: None Reported Past Drug Use History: None Reported Medications and Allergies Home Medications Medication Instructions Recorded Confirmed Type Cyanocobalamin (Vitamin B-12) 1,000 mcg PO DAILY 07/10/19 12/22/24 History [Vitamin B-12] Folic Acid 0.8 mg PO DAILY 07/10/19 12/22/24 History clonazePAM [KlonoPIN] 0.5 mg PO BID 07/10/19 12/22/24 History ursodioL [Actigall] 600 mg PO BID 07/10/19 12/22/24 History Famotidine [Pepcid] 20 mg PO BID PRN 02/28/24 12/22/24 History Dicyclomine [Bentyl] 10 mg PO TID PRN 12/22/24 12/22/24 History Allergies Allergy/AdvReac Type Severity Reaction Status Date / Time aspirin AdvReac Unknown Verified 12/22/24 17:44 codeine AdvReac Nausea & Verified 12/22/24 17:44 Vomiting hydromorphone [From Dilaudid] AdvReac Nausea & Verified 12/22/24 17:44 Vomiting Iodinated Contrast Media AdvReac Nausea & Verified 12/22/24 17:44 Vomiting morphine AdvReac Nausea & Verified 12/22/24 17:44 Vomiting Sulfa (Sulfonamide AdvReac Nausea & Verified 12/22/24 17:44 Antibiotics) Vomiting Physical Exam Vitals: Vital Signs Temp Pulse Resp BP Pulse Ox 12/23/24 07:18 73 18 110/53 100 12/23/24 01:16 80 18 99/53 99 12/22/24 18:26 79 16 123/64 100 12/22/24 15:11 98.5 F 78 20 119/69 100 Intake and Output 12/22/24 12/23/24 12/23/24 22:59 06:59 14:59 Other: Weight 44.906 kg General appearance: The patient is alert, oriented, appears in no acute distress. HET: Head is normocephalic and atraumatic. Conjunctiva pink. Sclera anicteric. Neck: Supple without lymphadenopathy. Trachea midline. Heart: Regular. Lungs: Equal expansion, normal respiratory effort. Abdomen: Soft, nontender, nondistended. Skin: No rashes. No jaundice. Extremities: Normal skin color and turgor. No pedal edema. Neurological: No focal deficits. Alert and oriented x3. Results CBC & Chem 7: 12/23/24 09:15 12/23/24 09:15 Assessment and Plan (1) Ulcerative colitis Narrative/Plan: 74-year-old female with history of ulcerative colitis with onset of increased diarrhea about 3 weeks ago, nonbloody. Recently started on Bentyl in the outpatient setting with not much improvement. Took Imodium with improvement in diarrhea. Possible ulcerative colitis exacerbation. Patient had CT abdomen and pelvis at outside facility, impression reads mild cecal wall thickening noted as well as wall thickening in the region at the hepatic flexure could reflect areas of colitis. Correlate clinically. Neoplasm is not excluded. Consider follow- up and/or direct visualization. No leukocytosis, patient is afebrile. Abdominal pain improved, diarrhea improved. Had upper endoscopy and colonoscopy within the past year in May 2024. Upper endoscopy evidence of mild antral gastritis and colonoscopy had patchy areas of erythema noted in the cecum and ascending colon status post biopsies. There is no plans for repeat endoscopic evaluation. Recommend continuing mesalamine which she had stopped on her own. Continue Bentyl for abdominal pain and cramping. Current Visit: Yes Status: Acute Code(s): K51.90 - ULCERATIVE COLITIS, UNSPECIFIED, WITHOUT COMPLICATIONS SNOMED Code(s): 25362567 (2) Diarrhea Current Visit: Yes Status: Acute Code(s): R19.7 - DIARRHEA, UNSPECIFIED SNOMED Code(s): 60025796 (3) Elevated LFTs Narrative/Plan: Patient with history of primary sclerosing cholangitis, LFT elevation may be s econdary to colitis exacerbation or some medication induced. Will follow as an outpatient. Current Visit: Yes Status: Acute Code(s): R79.89 - OTHER SPECIFIED ABNORMAL FINDINGS OF BLOOD CHEMISTRY SNOMED Code(s): 061259857 Plan: 1. Continue symptomatic and supportive care 2. Continue Bentyl 3. Repeat CBC CMP. Reviewed. 4. Collect stool for C. difficile. C. difficile could not be completed secondary to formed stool. 5. Patient may have low-fat low fiber diet 6. Discussed with patient to resume her mesalamine 7. No plans of endoscopic evaluation Thank you for this consultation, patient is cleared from gastroenterology for discharge. Follow-up as scheduled in [address] Lb Guerin I agree with the dictator's note, documented as a scribe by Joi Weathers.
[2024-12-23] MEDS: SODIUM CHLORIDE 0.9% 1,000 ML IV SCH (12:28)
--- NOTE | 2024-12-23 12:28 | P.HPIM ---
History of Present Illness 74-year-old female with known history of ulcerative colitis and primary sclerosing cholangitis was sent in from outside hospital for evaluation by gastroenterology because of elevated mass slightly elevated liver enzymes, nonbloody loose stools 5-7 a day. Patient also had leukocytosis at the hospital although her leukocytosis resolved here patient had a CT of the abdomen dated which showed possible inflammation of the cecum although patient does not have any tenderness in the cecal area. Patient has her usual abdominal pain sec ondary ulcerative colitis. Patient diarrhea resolved at this time patient here patient is advised to take Bentyl patient has crampy abdominal pain. Patient did take Imodium after which his symptoms resolved. Patient has slightly elevated liver enzymes. Patient is thin built female REVIEW OF SYSTEMS: All other systems are negative except those mentioned in the HPI PHYSICAL EXAMINATION: GENERAL: The patient is alert and oriented x3, not in any acute distress. Thin built. HEENT: Pupils are round and equally reacting to light. EOMI. No scleral icterus. No conjunctival pallor. Normocephalic, atraumatic. No pharyngeal erythema. No thyromegaly. CARDIOVASCULAR: S1 and S2 present. No murmurs, rubs, or gallops. PULMONARY: Chest is clear to auscultation, no wheezing or crackles. ABDOMEN: Soft, nontender, nondistended, normoactive bowel sounds. No palpable organomegaly. MUSCULOSKELETAL: No joint swelling or deformity. EXTREMITIES: No cyanosis, clubbing, or pedal edema. NEUROLOGICAL: Gross neurological examination did not reveal any focal deficits. SKIN: No rashes. Assessment and plan -Diarrhea: Etiology can be ulcerative colitis patient was evaluated gastroenterology they are recommending symptomatic treatment which she will continue. Patient diarrhea improved at this time -Leukocytosis secondary to diarrhea -Mild elevation of liver enzymes secondary to primary sclerosing chronic laryngitis no further intervention at this time Mild malnourishment secondary to her ulcerative colitis -Mild hypovolemic hyponatremia patient received IV fluids patient cannot get any other IV line patient was asked to hydrate herself at home. If cleared by gastroenterology patient will be discharged later today Past Medical History Past Medical History: Liver Disease Additional Past Medical History / Comment(s): sclerosing cholangitis, interstitial cystitis, ulcerative collitis History of Any Multi-Drug Resistant Organisms: C-DIFF Date of last positivie culture/infection: 2021 MDRO Source:: stool Past Surgical History: Back Surgery, Cholecystectomy, Hernia Repair Past Psychological History: No Psychological Hx Reported Smoking Status: Never smoker Past Alcohol Use History: None Reported Past Drug Use History: None Reported Medications and Allergies Home Medications Medication Instructions Recorded Confirmed Type Cyanocobalamin (Vitamin B-12) 1,000 mcg PO DAILY 07/10/19 12/22/24 History [Vitamin B-12] Folic Acid 0.8 mg PO DAILY 07/10/19 12/22/24 History clonazePAM [KlonoPIN] 0.5 mg PO BID 07/10/19 12/22/24 History ursodioL [Actigall] 600 mg PO BID 07/10/19 12/22/24 History Famotidine [Pepcid] 20 mg PO BID PRN 02/28/24 12/22/24 History Dicyclomine [Bentyl] 10 mg PO TID PRN 12/22/24 12/22/24 History Allergies Allergy/AdvReac Type Severity Reaction Status Date / Time aspirin AdvReac Unknown Verified 12/22/24 17:44 codeine AdvReac Nausea & Verified 12/22/24 17:44 Vomiting hydromorphone [From Dilaudid] AdvReac Nausea & Verified 12/22/24 17:44 Vomiting Iodinated Contrast Media AdvReac Nausea & Verified 12/22/24 17:44 Vomiting morphine AdvReac Nausea & Verified 12/22/24 17:44 Vomiting Sulfa (Sulfonamide AdvReac Nausea & Verified 12/22/24 17:44 Antibiotics) Vomiting Physical Exam Vitals: Vital Signs Temp Pulse Resp BP Pulse Ox 12/23/24 12:00 71 16 95/48 97 12/23/24 10:47 98.4 F 12/23/24 10:35 73 18 88/49 99 12/23/24 09:59 76 16 111/50 97 12/23/24 08:00 73 18 111/51 100 12/23/24 07:18 73 18 110/53 100 12/23/24 01:16 80 18 99/53 99 12/22/24 18:26 79 16 123/64 100 12/22/24 15:11 98.5 F 78 20 119/69 100 Intake and Output 12/22/24 12/23/24 12/23/24 22:59 06:59 14:59 Other: Weight 44.906 kg Results CBC & Chem 7: 12/23/24 09:15 12/23/24 09:15 Labs: Abnormal Lab Results - Last 24 Hours (Table) 12/23/24 12/23/24 Range/Units 09:15 09:15 RBC 3.67 L (3.80-5.40) m/uL Hgb 11.1 L (11.4-16.0) gm/dL MCV 100.3 H (80.0-100.0) fL MCHC 30.1 L (31.0-37.0) g/dL Sodium 131 L (137-145) mmol/L Chloride 96 L (98-107) mmol/L AST 128 H (14-36) U/L ALT 89 H (4-34) U/L Alkaline Phosphatase 416 H (38-126) U/L Albumin 3.0 L (3.5-5.0) g/dL
--- NOTE | 2024-12-23 12:29 | P.DS ---
Providers Date of admission: 12/22/24 15:44 Attending physician: Stephy Luis Consults: 12/22/24 15:42 Consult Physician Urgent Consulting Provider: Lexie Guerin Consult Reason/Comments: Ulcerative colitis Do you want consulting provider notified?: Yes Primary care physician: Stated None Hospital Course: 74-year-old female with known history of ulcerative colitis and primary sclerosing cholangitis was sent in from outside hospital for evaluation by gastroenterology because of elevated mass slightly elevated liver enzymes, nonbloody loose stools 5-7 a day. Patient also had leukocytosis at the hospital although her leukocytosis resolved here patient had a CT of the abdomen dated which showed possible inflammation of the cecum although patient does not have any tenderness in the cecal area. Patient has her usual abdominal pain secondary ulcerative colitis. Patient diarrhea resolved at this time patient here patient is advised to take Bentyl patient has crampy abdominal pain. Wang jazmín did take Imodium after which his symptoms resolved. Patient has slightly elevated liver enzymes. Patient is thin built female REVIEW OF SYSTEMS: All other systems are negative except those mentioned in the HPI PHYSICAL EXAMINATION: GENERAL: The patient is alert and oriented x3, not in any acute distress. Thin built. HEENT: Pupils are round and equally reacting to light. EOMI. No scleral icterus. No conjunctival pallor. Normocephalic, atraumatic. No pharyngeal erythema. No thyromegaly. CARDIOVASCULAR: S1 and S2 present. No murmurs, rubs, or gallops. PULMONARY: Chest is clear to auscultation, no wheezing or crackles. ABDOMEN: Soft, nontender, nondistended, normoactive bowel sounds. No palpable organomegaly. MUSCULOSKELETAL: No joint swelling or deformity. EXTREMITIES: No cyanosis, clubbing, or pedal edema. NEUROLOGICAL: Gross neurological examination did not reveal any focal deficits. SKIN: No rashes. Assessment and plan -Diarrhea: Etiology can be ulcerative colitis patient was evaluated gastroenterology they are recommending symptomatic treatment which she will continue. Patient diarrhea improved at this time -Leukocytosis secondary to diarrhea -Mild elevation of liver enzymes secondary to primary sclerosing chronic laryngitis no further intervention at this time Mild malnourishment secondary to her ulcerative colitis -Mild hypovolemic hyponatremia patient received IV fluids patient cannot get any other IV line patient was asked to hydrate herself at home. If cleared by gastroenterology patient will be discharged later today Plan - Discharge Summary New Discharge Prescriptions: Continue clonazePAM [KlonoPIN] 0.5 mg PO BID Cyanocobalamin (Vitamin B-12) [Vitamin B-12] 1,000 mcg PO DAILY Folic Acid 0.8 mg PO DAILY ursodioL [Actigall] 600 mg PO BID Famotidine [Pepcid] 20 mg PO BID PRN PRN Reason: Heartburn Dicyclomine [Bentyl] 10 mg PO TID PRN PRN Reason: Gi Upset Discharge Medication List Cyanocobalamin (Vitamin B-12) [Vitamin B-12] 1,000 mcg PO DAILY 07/10/19 [History] Folic Acid 0.8 mg PO DAILY 07/10/19 [History] clonazePAM [KlonoPIN] 0.5 mg PO BID 07/10/19 [History] ursodioL [Actigall] 600 mg PO BID 07/10/19 [History] Famotidine [Pepcid] 20 mg PO BID PRN 02/28/24 [History] Dicyclomine [Bentyl] 10 mg PO TID PRN 12/22/24 [History] Follow up Appointment(s)/Referral(s): Lexie Guerin MD [STAFF PHYSICIAN] - 1 Week Alphonso Mrecedes MD [REFERRING] - 1 Week None,Stated [Primary Care Provider] - 1-2 days Discharge Disposition: HOME SELF-CARE
[2024-12-23 14:01] VITALS: BP 120/71; PULSE 70; RESP 18
== END 2024-12-23 14:00 | disposition home or self-care (01) | DRG 386 ==
LOC: EC 15:09 → 4SSUR 15:44
PROVIDERS: ADMIT Hospitalist; ATTEND Hospitalist
DX: K51.90 Ulcerative colitis, unspecified, without complications (principal); E46 Unspecified protein-calorie malnutrition; E87.1 Hypo-osmolality and hyponatremia; Z68.1 Body mass index [BMI] 19.9 or less, adult; E86.1 Hypovolemia; J37.0 Chronic laryngitis; N30.10 Interstitial cystitis (chronic) without hematuria; Z88.6 Allergy status to analgesic agent; Z88.5 Allergy status to narcotic agent; Z91.041 Radiographic dye allergy status; Z88.2 Allergy status to sulfonamides
CPT/HCPCS: 80053; 85025; 96360; 96361; 99285